=== PATIENT | male | born 1940 | race Caucasian/White ===

== ENCOUNTER 2016-09-05 21:37 | Inpatient (IN) | payer OTHER ==
[~2016-09-05] VITALS: Ht 167.6 cm; Wt 112.2 kg
[~2016-09-05 21:37] MED LIST: ASPEC325 PO; GLC500 PO; HYDC25 PO; INSDGI SC; LISI-725 PO; MULT-506 PO; OXYC-57 PO; PRLSR20 PO
[2016-09-05] MEDS ORDERED: SODIUM CHLORIDE 0.9% 500ML 500 ML IV STA (22:26)
[2016-09-05] MEDS ORDERED: LEVAQUIN 750MG / 150ML D5W IV STA (22:26)
[2016-09-05 22:27] LABS: HEMATOCRIT 44.2 % (42-52); MEAN CELL VOLUME 89.5 fL (80-100); MEAN CORPUSCULAR HEMOGLOBIN 29.8 pg (25-34); MEAN CORPUSCULAR HGB CONC 33.3 g/dl (32-36); MEAN PLATELET VOLUME 10.4 fL (7.4-10.4); PLATELET COUNT 128 K/uL (130-400); RED BLOOD COUNT 4.94 M/uL (4.7-6.1)
[2016-09-05 22:37] LABS: PROTHROMBIN TIME (PATIENT) 11.1 SECONDS (9.0-12.0)
--- NOTE | 2016-09-05 22:40 | DIAGNOSTIC IMAGING REPORT ---
CHEST ONE VIEW PORTABLE CLINICAL HISTORY: Respiratory distress COMPARISON STUDY: No previous studies for comparison. FINDINGS: The heart is at the upper limits of normal in size. There is no overt failure. There is no focal pulmonary consolidation. There are minor basilar atelectatic changes.[ IMPRESSION: No active disease in the chest. Electronically signed by: Kal Rm M.D. 09/05/2016 10:39 PM Dictated Date/Time: 09/05/2016 10:38 PM
[2016-09-05] MEDS ORDERED: NITROGLYCERIN OINT 2% 1GM PACKET EXT STA (22:50)
[2016-09-05 22:56] LABS: BASO % 0.1 %; BASO ABS # 0.01 K/uL (0-0.2); COMPLETE YES; EOS % 1.3 %; IG% 0.1 %; LYMPH % 14.9 %; LYMPH ABS # 1.36 K/uL (1.2-3.4); MONO % 5.6 %
[2016-09-05] MEDS ORDERED: LISI20TA3 PO (22:56)
[2016-09-05] MEDS ORDERED: CLOP1TAB15 PO (22:56)
[2016-09-05] MEDS ORDERED: COEN75CA PO (22:56)
[2016-09-05] MEDS ORDERED: MAGN500T4 PO (22:56)
[2016-09-05] MEDS ORDERED: ZINC1TAB PO (22:56)
[2016-09-05] MEDS ORDERED: CHOL1000 PO (22:56)
[2016-09-05] MEDS ORDERED: TURM500T PO (22:56)
[2016-09-05] MEDS ORDERED: MISCTAB26 PO (22:56)
[2016-09-05] MEDS ORDERED: LOVA20TA4 PO (22:56)
[2016-09-05] MEDS ORDERED: VITA400C3 PO (22:56)
[2016-09-05] MEDS ORDERED: CINN1CAP2 PO (22:56)
[2016-09-05] MEDS ORDERED: FURO-85 PO (22:56)
[2016-09-05] MEDS ORDERED: GLIM4TAB2 PO (22:56)
[2016-09-05] MEDS ORDERED: OMEGCAP2 PO (22:56)
[2016-09-05] MEDS ORDERED: METF-384 PO (22:56)
[2016-09-05] MEDS ORDERED: COCO1OIL2 PO (22:56)
[2016-09-05] MEDS ORDERED: SAW450CA5 PO (22:56)
[2016-09-05] MEDS ORDERED: CARV12.5 PO (22:56)
[2016-09-05] MEDS ORDERED: NITROGLYCERIN OINT 2% 1GM PACKET ONE ×2 (22:59→23:02)
[2016-09-05 23:09] LABS: ALB/GLOB RATIO 1.2 (0.9-2); ALKALINE PHOSPHATASE 82 U/L (45-117); ALT/SGPT 39 U/L (12-78); BLOOD UREA NITROGEN 21 mg/dl (7-18); BUN/CREATININE RATIO 17.6 (10-20); CALCIUM 8.5 mg/dl (8.5-10.1); CARBON DIOXIDE 31 mmol/L (21-32); CHLORIDE 102 mmol/L (98-107); GLUCOSE 247 mg/dl (70-99)
[2016-09-05 23:15] LABS: POTASSIUM 3.8 mmol/L (3.5-5.1); SODIUM 141 mmol/L (136-145)
[2016-09-05 23:20] LABS: AST/SGOT 31 U/L (15-37)
[2016-09-05 23:52] LABS: URINE APPEARANCE CLEAR (CLEAR); URINE BILIRUBIN NEG (NEG); URINE COLOR YELLOW; URINE NITRITE NEG (NEG); URINE SPECIFIC GRAVITY 1.019 (1.000-1.030); UROBILINOGEN NEG (NEG)
[2016-09-05 23:58] LABS: MANUAL MICROSCOPIC REQUIRED? NO; REVIEW REQ? NO
[2016-09-06] VITALS (12 sets, daily range): BP systolic 107–164; BP diastolic 54–91; PULSE 59–102; TEMP 36.4–37.2; O2SAT 90–97; Ht 167.6 cm; Wt 112.2 kg
[2016-09-06] MEDS ORDERED: SODIUM CHLORIDE 0.9% 1000ML 1,000 ML IV STA (00:21)
[2016-09-06] MEDS ORDERED: MAGNESIUM HYDROXIDE SUSP 30 ML UDC PO PRN (00:30)
[2016-09-06] MEDS ORDERED: POLYETHYLENE (MIRALAX) 17 GM PACK PO PRN (00:30)
[2016-09-06] MEDS ORDERED: ONDANSETRON INJ 2 MG/ML 2 ML VIAL IV PRN (00:30)
[2016-09-06] MEDS ORDERED: ALUMINUM/MAGNESIUM/SIMETH (MAALOX MAX) 30 ML UDC PO PRN (00:30)
[2016-09-06] MEDS ORDERED: NITROGLYCERIN 0.4 MG SL PER TAB CHARGE SL PRN (00:30)
[2016-09-06] MEDS ORDERED: ACETAMINOPHEN 325 MG TAB PO PRN (00:30)
[2016-09-06] MEDS ORDERED: ZOLPIDEM TARTRATE 5 MG TAB PO PRN (00:30)
[2016-09-06] MEDS ORDERED: OPTIRAY 320 IV PRN (00:30)
[2016-09-06] MEDS ORDERED: CEFTRIAXONE SOD INJ 1 GM in DEXTROSE 5% ADD-VANTAGE 50ML 50 ML IV STA (00:37)
[2016-09-06] MEDS ORDERED: AZITHROMYCIN IV 500 MG in DEXTROSE 5% 250ML 250 ML IV STA (00:37)
--- NOTE | 2016-09-06 01:32 | History and Physical ---
History & Physical Date & Time of Service: Sep 06, 2016 at 01:31 Chief Complaint: Congested Primary Care Physician: No Doctor, Assigned History of Present Illness Source: patient This is 76 yo Male visiting [facility] , presented with SOB , orthopnea , cough with productive sputum , chills for past 2 days Pt's past medical hx includes -hx of TIA ( multiple times ) , HTN , CHF ( dx approx 2 yrs back ) , DM type 2 pt mentions he came to [place] with his to visit family , has been staying in a Motel 2 nights before pt woke up with SOB , cough , unable to lay flat had ongoing cough through the day tool Zyrtec -for possible allergy symptom -developed chills and rigor no record of fever in the ED pt was found hypoxic spo2 in 80's in RA improved after 2 L 02 ( pt is not on home 02 ) Cxry shows no active pulmonary disease , no pulmonary congestion , Pro BNP wnl CTA of chest negative for PE bibasilar atelectasis pt given dose of IV Levaquin in ER will be admitted to telemetry for further care Social History Smoking Status: Never Smoker Multi-Drug Resistant Organisms History of MDRO: No Allergies Coded Allergies: CI Pigment Blue 63 (Unverified Allergy, Severe, HALLUCINATIONS, 09/05/16) Oseltamivir (Unverified Allergy, Severe, HALLUCINATIONS, 09/05/16) Home Medications Scheduled Carvedilol (Coreg), 12.5 MG PO BID Cholecalciferol (Vitamin D3), 1 TAB PO DAILY Cinnamon (Cinnamon), 2 CAP PO DAILY Clopidogrel (Plavix), 75 MG PO DAILY Coconut Oil (Bulk) (Coconut Oil), 1,000 MG PO DAILY Coenzyme Q10 (Ubidecarenone) (Co Q-10), 1 CAP PO DAILY Furosemide (Lasix), 20 MG PO DAILY Glimepiride (Glimepiride), 1 TAB PO DAILY Lisinopril (Prinivil), 20 MG PO DAILY Lovastatin (Mevacor), 20 MG PO DAILY Magnesium Oxide (Mg Supplement (Magnesium), 1 TAB PO DAILY Metformin Hcl (Glucophage), 1,000 MG PO DAILY Misc Natural Products (Ginkgo Biloba), 1 TAB PO DAILY [place]-3 Fatty Acids (Fish Oil), 2 CAP PO DAILY Saw [place] (Serenoa Repens) (Saw [place]), 1 CAP PO DAILY Turmeric (Curcuma Longa) (Turmeric), 1 TAB PO DAILY Vitamin E (Vitamin E 400 Iu), 400 INTER.UNIT PO DAILY Zinc Gluconate (Zinc), 1 TAB PO DAILY Review of Systems Constitutional: + chills, + sweats, + weight loss, + weakness, + fatigue Respiratory: + cough, + sputum, + shortness of breath, + dyspnea on exertion, + dyspnea at rest Abdomen: No pain, No nausea, No vomiting, No diarrhea, No constipation, No GI bleeding, No problem reported Musculoskeletal: No joint pain, No muscle pain, No swelling, No calf pain, No problem reported Genitourinary - Male: No hematuria, No dysuria, No urinary frequency, No urinary urgency, No urinary hesitancy, No urinary retention, No urinary incontinence, No penile discharge, No lesions, No impotence, No problem reported Neurologic: + weakness Physical Exam Vital Signs Date Time Temp Pulse Resp B/P (MAP) Pulse Ox O2 Delivery O2 Flow Rate FiO2 09/06/16 01:05 37.2 115 17 140/80 99 09/06/16 00:37 115 17 140/80 99 Nasal Cannula 2.0 09/05/16 23:43 110 09/05/16 23:02 100 24 174/102 97 Nasal Cannula 2.0 09/05/16 22:06 97 Nasal Cannula 2.0 09/05/16 21:53 97 Nasal Cannula 2.0 09/05/16 21:41 37.6 103 20 220/97 88 Room Air General Appearance: no apparent distress Head: normocephalic, atraumatic Eyes: sclerae normal Respiratory/Chest: chest non-tender, + decreased breath sounds, + pertinent finding (no wheeze or rales noted ) Cardiovascular: regular rate, rhythm, no edema, no JVD Abdomen/GI: non tender, soft Extremities/Musculoskelatal: normal inspection, no calf tenderness, normal capillary refill, no pedal edema Neurologic/Psych: alert, normal mood/affect, oriented x 3 Diagnostics Laboratory Results Results Past 24 Hours Test 09/05/16 22:10 09/05/16 23:40 Range/Units White Blood Count 9.10 4.8-10.8 K/uL Red Blood Count 4.94 4.7-6.1 M/uL Hemoglobin 14.7 14.0-18.0 g/dL Hematocrit 44.2 42-52 % Mean Corpuscular Volume 89.5 80-100 fL Mean Corpuscular Hemoglobin 29.8 25-34 pg Mean Corpuscular Hemoglobin Concent 33.3 32-36 g/dl Platelet Count 128 130-400 K/uL Mean Platelet Volume 10.4 7.4-10.4 fL Neutrophils (%) (Auto) 78.0 % Lymphocytes (%) (Auto) 14.9 % Monocytes (%) (Auto) 5.6 % Eosinophils (%) (Auto) 1.3 % Basophils (%) (Auto) 0.1 % Neutrophils # (Auto) 7.09 1.4-6.5 K/uL Lymphocytes # (Auto) 1.36 1.2-3.4 K/uL Monocytes # (Auto) 0.51 0.11-0.59 K/uL Eosinophils # (Auto) 0.12 0-0.5 K/uL Basophils # (Auto) 0.01 0-0.2 K/uL RDW Standard Deviation 41.8 36.4-46.3 fL RDW Coefficient of Variation 12.9 11.5-14.5 % Immature Granulocyte % (Auto) 0.1 % Immature Granulocyte # (Auto) 0.01 0.00-0.02 K/uL Prothrombin Time 11.1 9.0-12.0 SECONDS Prothromb Time International Ratio 1.0 0.9-1.1 Activated Partial Thromboplast Time 26.4 21.0-31.0 SECONDS Partial Thromboplastin Ratio 1.0 D-Dimer 520 0-500 ug/L FEU Sodium Level 141 136-145 mmol/L Potassium Level 3.8 3.5-5.1 mmol/L Chloride Level 102 98-107 mmol/L Carbon Dioxide Level 31 21-32 mmol/L Anion Gap 8.0 3-11 mmol/L Blood Urea Nitrogen 21 7-18 mg/dl Creatinine 1.20 0.60-1.40 mg/dl Est Creatinine Clear Calc Drug Dose 64.0 ml/min Estimated GFR () 67.7 Estimated GFR (Non- 58.4 BUN/Creatinine Ratio 17.6 10-20 Random Glucose 247 70-99 mg/dl Calcium Level 8.5 8.5-10.1 mg/dl Total Bilirubin 0.5 0.2-1 mg/dl Aspartate Amino Transf (AST/SGOT) 31 15-37 U/L Alanine Aminotransferase (ALT/SGPT) 39 12-78 U/L Alkaline Phosphatase 82 45-117 U/L Troponin I < 0.015 0-0.045 ng/ml Pro-B-Type Natriuretic Peptide 163 0-1800 pg/ml Total Protein 7.7 6.4-8.2 gm/dl Albumin 4.2 3.4-5.0 gm/dl Globulin 3.5 2.5-4.0 gm/dl Albumin/Globulin Ratio 1.2 0.9-2 Urine Color YELLOW Urine Appearance CLEAR CLEAR Urine pH 7.0 4.5-7.5 Urine Specific [place] 1.019 1.000-1.030 Urine Protein NEG NEG Urine Glucose (UA) 1+ NEG Urine Ketones NEG NEG Urine Occult Blood NEG NEG Urine Nitrite NEG NEG Urine Bilirubin NEG NEG Urine Urobilinogen NEG NEG Urine Leukocyte Esterase NEG NEG Microbiology Results 09/06/16 Blood Culture, Received Pending 09/06/16 Blood Culture, Received Pending Diagnostic Radiology CT CHEST WITH CONTRAST : mild ascending aortic aneurysm measuring 4 cm , no evidence of dissection . No evidence of acute pulmonary embolism , main pulmonary artery is normal in caliber . Thickening of left ventricular wall , Coronary atherosclerosis , No pericardial effusion , No adenopathy by size criteria , No consolidation ,effusion or pneumothorax CXR normal Impression Assessment and Plan SOB /HYPOXIA : possible due to acute bronchitis Cxray /CT chest does not show any infiltrate Lungs auscultation is benign cont Empiric ABx with Rocephin /Zithromax blood culture ordered HTN : stable cont out pt meds CHF : Dx of CHF 2 yrs back no report available as pt is visiting form out of State does not appear to have vol overloaded ECHO ordered cont Lasix , Lisinopril TYPE 2 DM : cont Lantus oral agents on hold while admitted insulin sliding scale PRIOR HX OF TIA : No neurological deficit noted on Aspirin , Plavix , statin FULL CODE DVT PROPHYLAXIS : sub heparin DISPOSITION : Discharge home when medically stable Level of Care Telemetry Resuscitation Status FULL RESUSCITATION VTE Prophylaxis VTE Risk Assessment Done? Y/N: Yes Risk Level: Moderate Given or contraindicated: Unfractionated heparin SQ
[2016-09-06] MEDS ORDERED: GLUCOSE 10 TABS/TUBE PO PRN (01:45)
[2016-09-06] MEDS ORDERED: GLUCAGON FOR INJ 1 MG VIAL SQ PRN (01:45)
[2016-09-06] MEDS ORDERED: SODIUM CHLORIDE 0.9% 1000ML 1,000 ML IV SCH (01:45)
[2016-09-06] MEDS ORDERED: GLUCOSE 40% GEL 15 GM TUBE PO PRN (01:45)
[2016-09-06] MEDS ORDERED: DEXTROSE 50% 50 ML SYR IV PRN (01:45)
--- NOTE | 2016-09-06 02:16 | EMERGENCY ROOM VISIT NOTE ---
History Report prepared by Sage: Pete Ugarte Under the Supervision of: Dr. Jose Angel Willson D.O. First contact with patient: 21:45 Chief Complaint: SHORTNESS OF BREATH Stated Complaint: CONGESTED Nursing Triage Summary: pt reports increased exertional sob , " I felt like I was coming down with a cold and congested" took a claritin 1 hr ago and then got fever and chills + mucus production yellow in color History of Present Illness The patient is a 76 year old male who presents to the Emergency Room with complaints of constant shortness of breath beginning last night. The patient states that last night he was at [employer] and ate dinner. He reports that when we went back to the [facility] room and could not breath. He states that he is not on oxygen at home. The patient notes that he used the C-Pack, that he uses every night, and it helped. He states that he also has a productive, light yellow cough, rhinorrhea, and fevers. The patient denies chest pain and abdominal pain. He notes that he took Claritin and then started shaking violently. The patient states that he has history of CHF, DM, and multiple TIAs. He reports that he takes Carvedilol daily. The patient states that he is here from [place] because his niece just graduated. Source of History: patient Onset: last night Position: other (global) Quality: other (shortness of breath) Timing: constant Modifying Factors (Relieving): other (c-pack) Associated Symptoms: + fevers, + cough (productive, yellow), No chest pain, No abdominal pain Note: Associated symptoms: rhinorrhea Review of Systems See HPI for pertinent positives & negatives. A total of 10 systems reviewed and were otherwise negative. Past Medical & Surgical Medical Problems: (1) CHF (congestive heart failure) (2) Diabetes mellitus (3) Hypoxia (4) TIA (transient ischemic attack) Social History Smoking Status: Never Smoker Marital Status: Occupation Status: retired Current/Historical Medications Scheduled Carvedilol (Coreg), 12.5 MG PO BID Cholecalciferol (Vitamin D3), 1 TAB PO DAILY Cinnamon (Cinnamon), 2 CAP PO DAILY Clopidogrel (Plavix), 75 MG PO DAILY Coconut Oil (Bulk) (Coconut Oil), 1,000 MG PO DAILY Coenzyme Q10 (Ubidecarenone) (Co Q-10), 1 CAP PO DAILY Furosemide (Lasix), 20 MG PO DAILY Glimepiride (Glimepiride), 1 TAB PO DAILY Lisinopril (Prinivil), 20 MG PO DAILY Lovastatin (Mevacor), 20 MG PO DAILY Magnesium Oxide (Mg Supplement (Magnesium), 1 TAB PO DAILY Metformin Hcl (Glucophage), 1,000 MG PO DAILY Misc Natural Products (Ginkgo Biloba), 1 TAB PO DAILY [place]-3 Fatty Acids (Fish Oil), 2 CAP PO DAILY [place] (Serenoa Repens) (S[place]), 1 CAP PO DAILY Turmeric (Curcuma Longa) (Turmeric), 1 TAB PO DAILY Vitamin E (Vitamin E 400 Iu), 400 INTER.UNIT PO DAILY Zinc Gluconate (Zinc), 1 TAB PO DAILY Allergies Coded Allergies: CI Pigment Blue 63 (Unverified Allergy, Severe, HALLUCINATIONS, 09/05/16) Oseltamivir (Unverified Allergy, Severe, HALLUCINATIONS, 09/05/16) Physical Exam Vital Signs Date Time Temp Pulse Resp B/P (MAP) Pulse Ox O2 Delivery O2 Flow Rate FiO2 09/05/16 23:43 110 09/05/16 23:02 100 24 174/102 97 Nasal Cannula 2.0 09/05/16 22:06 97 Nasal Cannula 2.0 09/05/16 21:53 97 Nasal Cannula 2.0 09/05/16 21:41 37.6 103 20 220/97 88 Room Air Physical Exam GENERAL: Obese, sitting up in bed, disheveled, dyspneic on conversation EYE EXAM: normal conjunctiva, PERRL and EOM's grossly intact OROPHARYNX: no exudate, no erythema, lips, buccal mucosa, and tongue normal and mucous membranes are moist NECK: supple, no nuchal rigidity, no adenopathy, non-tender LUNGS: Coarse bilateral bases. Normal chest wall mechanics HEART: Distant and tachycardic, S1 normal and S2 normal ABDOMEN: abdomen soft, non-tender, normo-active bowel sounds, no masses, no rebound or guarding. BACK: Back is symmetrical on inspection and there is no deformity, no midline tenderness, no CVA tenderness. SKIN: no rashes and no bruising UPPER EXTREMITIES: upper extremities are grossly normal. LOWER EXTREMITIES: Faint pitting edema. NEURO EXAM: Normal sensorium, cranial nerves II-XII intact, normal speech, no weakness of arms, no weakness of legs. Medical Decision & Procedures ER Provider Diagnostic Interpretation: Radiology results as stated below per my review and the radiologist's interpretation: CHEST ONE VIEW PORTABLE CLINICAL HISTORY: Respiratory distress COMPARISON STUDY: No previous studies for comparison. FINDINGS: The heart is at the upper limits of normal in size. There is no overt failure. There is no focal pulmonary consolidation. There are minor basilar atelectatic changes.[ IMPRESSION: No active disease in the chest. Electronically signed by: Kal Rm M.D. 09/05/2016 10:39 PM Dictated Date/Time: 09/05/2016 10:38 PM Laboratory Results 09/05/16 22:10 Red Blood Count 4.94, Mean Corpuscular Volume 89.5, Mean Corpuscular Hemoglobin 29.8, Mean Corpuscular Hemoglobin Concent 33.3, Mean Platelet Volume 10.4, Neutrophils (%) (Auto) 78.0, Lymphocytes (%) (Auto) 14.9, Monocytes (%) (Auto) 5.6, Eosinophils (%) (Auto) 1.3, Basophils (%) (Auto) 0.1, Neutrophils # (Auto) 7.09, Lymphocytes # (Auto) 1.36, Monocytes # (Auto) 0.51, Eosinophils # (Auto) 0.12, Basophils # (Auto) 0.01 09/05/16 22:10 Test 09/05/16 22:10 09/05/16 23:40 White Blood Count 9.10 K/uL (4.8-10.8) Red Blood Count 4.94 M/uL (4.7-6.1) Hemoglobin 14.7 g/dL (14.0-18.0) Hematocrit 44.2 % (42-52) Mean Corpuscular Volume 89.5 fL (80-100) Mean Corpuscular Hemoglobin 29.8 pg (25-34) Mean Corpuscular Hemoglobin Concent 33.3 g/dl (32-36) Platelet Count 128 K/uL (130-400) Mean Platelet Volume 10.4 fL (7.4-10.4) Neutrophils (%) (Auto) 78.0 % Lymphocytes (%) (Auto) 14.9 % Monocytes (%) (Auto) 5.6 % Eosinophils (%) (Auto) 1.3 % Basophils (%) (Auto) 0.1 % Neutrophils # (Auto) 7.09 K/uL (1.4-6.5) Lymphocytes # (Auto) 1.36 K/uL (1.2-3.4) Monocytes # (Auto) 0.51 K/uL (0.11-0.59) Eosinophils # (Auto) 0.12 K/uL (0-0.5) Basophils # (Auto) 0.01 K/uL (0-0.2) RDW Standard Deviation 41.8 fL (36.4-46.3) RDW Coefficient of Variation 12.9 % (11.5-14.5) Immature Granulocyte % (Auto) 0.1 % Immature Granulocyte # (Auto) 0.01 K/uL (0.00-0.02) Prothrombin Time 11.1 SECONDS (9.0-12.0) Prothromb Time International Ratio 1.0 (0.9-1.1) Activated Partial Thromboplast Time 26.4 SECONDS (21.0-31.0) Partial Thromboplastin Ratio 1.0 D-Dimer 520 ug/L FEU (0-500) Anion Gap 8.0 mmol/L (3-11) Est Creatinine Clear Calc Drug Dose 64.0 ml/min Estimated GFR () 67.7 Estimated GFR (Non- 58.4 BUN/Creatinine Ratio 17.6 (10-20) Calcium Level 8.5 mg/dl (8.5-10.1) Total Bilirubin 0.5 mg/dl (0.2-1) Aspartate Amino Transf (AST/SGOT) 31 U/L (15-37) Alanine Aminotransferase (ALT/SGPT) 39 U/L (12-78) Alkaline Phosphatase 82 U/L (45-117) Troponin I < 0.015 ng/ml (0-0.045) Pro-B-Type Natriuretic Peptide 163 pg/ml (0-1800) Total Protein 7.7 gm/dl (6.4-8.2) Albumin 4.2 gm/dl (3.4-5.0) Globulin 3.5 gm/dl (2.5-4.0) Albumin/Globulin Ratio 1.2 (0.9-2) Urine Color YELLOW Urine Appearance CLEAR (CLEAR) Urine pH 7.0 (4.5-7.5) Urine Specific [place] 1.019 (1.000-1.030) Urine Protein NEG (NEG) Urine Glucose (UA) 1+ (NEG) Urine Ketones NEG (NEG) Urine Occult Blood NEG (NEG) Urine Nitrite NEG (NEG) Urine Bilirubin NEG (NEG) Urine Urobilinogen NEG (NEG) Urine Leukocyte Esterase NEG (NEG) Laboratory results per my review. Medications Administered Medications (Trade) Dose Ordered Sig/Vee Route Start Time Stop Time Status Last Admin Dose Admin Sodium Chloride 500 ml @ 999 mls/hr Q31M STAT IV 09/05/16 22:26 09/05/16 22:57 DC 09/05/16 22:35 999 MLS/HR Levofloxacin (Levaquin / D5W) 750 mg NOW STAT IV 09/05/16 22:26 09/05/16 22:27 DC 09/05/16 22:34 750 MG Nitroglycerin (Nitroglycerin 2% Oint) 2 inch ONE STAT EXT 09/05/16 22:50 09/05/16 22:52 DC 09/05/16 23:03 2 INCH Sodium Chloride 1,000 ml @ 999 mls/hr Q1H1M STAT IV 09/06/16 00:21 09/06/16 01:21 DC 09/06/16 00:42 999 MLS/HR ECG Indication: SOB/dyspnea Rate (beats per minute): 105 Rhythm: sinus tachycardia Findings: Q waves (Septal and inferior), left axis deviation ED Course ED COURSE: Vital signs were reviewed and showed tachycardia, hypertension, hypoxia The patients medical record was reviewed The above diagnostic studies were performed and reviewed. ED treatments and interventions as stated above. 5: The patient was evaluated in room A11B. A complete history and physical examination was performed. 6: Ordered Levofloxacin 750mg IV, Sodium Chloride 500 ml @ 999 mls/hr IV 2250: Upon reevaluation, the patient is resting. I discussed my findings with the patient and he understands and agrees with the treatment plan. Ordered Nitroglycerin 2in EXT. 2256: I discussed the patient's case with Sean Corona. The patient will be evaluated for further treatment. 0021: Ordered Sodium Chloride 1000 ml @ 999 mls/hr IV Based on the patients age, coexisting illnesses, exam and lab findings the decision to treat as an inpatient was made. The patient remained stable while under my care. The patient will be evaluated for further management. Medical Decision Differential diagnoses includes but is not limited to pneumonia, bronchitis, COPD/Asthma exacerbation, pneumothorax, pulmonary embolism, congestive heart failure, acute coronary syndrome Medication Reconciliation: I attest that I have personally reviewed the patient' s current medication list. Blood pressure screening: Patient was found to have an elevated blood pressure and was referred to their primary doctor for recheck and further treatment. Patient is a 76-year-old male who presents the ER for shortness of breath. Upon presentation he is hypoxic, hypertensive and has a low-grade temperature. Chest x-ray shows no focal consolidation. CBC along with BMP, LFTs and troponin was negative. UA was negative. EKG does showed Q waves but no obvious ischemia. Patient was placed on Nitropaste and his systolic pressures improved significant. He remained on 2 L nasal cannula along the ER. Patient was given a dose of Levaquin with his productive cough and shortness of breath. He is admitted to internal medicine for a further workup. Prior to admission a CT PE was performed but was not completed until after admission. Consults Time Called: 2250 Consulting Physician: Sean Corona Returned Call: [phone] I discussed the patient's case with Sean Corona. The patient will be evaluated for further treatment. Impression Primary Impression: SOB (shortness of breath) Additional Impression: Hypoxia Scribe Attestation The scribe's documentation has been prepared under my direction and personally reviewed by me in its entirety. I confirm that the note above accurately reflects all work, treatment, procedures, and medical decision making performed by me. Departure Information Dispostion Being Evaluated By Hospitalist Referrals No Doctor, Assigned (PCP) Patient Instructions My [facility] Problem Qualifiers
[2016-09-06] MEDS ORDERED: ALBUT/IPRATROP 3MG/0.5MG NEB 3 ML VIAL INH PRN (03:45)
[2016-09-06] MEDS: HEPARIN SOD 5000 UNIT/0.5 ML CARP SQ SCH ×3 (05:59→20:53)
[2016-09-06 07:18] LABS: CHOLESTEROL/HDL RATIO 3.8; CKMB/CK RATIO 1.8 (0-3.0)
--- NOTE | 2016-09-06 07:31 | DIAGNOSTIC IMAGING REPORT ---
CHEST ONE VIEW PORTABLE CLINICAL HISTORY: Shortness of breath. COMPARISON STUDY: Chest radiograph September 05, [address] September 06, 2016. FINDINGS: No pneumothorax or pleural effusion is present. There is no evidence of pulmonary edema. Mild cardiomegaly is noted. There is no consolidation. IMPRESSION: No acute cardiopulmonary findings. Electronically signed by: Justin Stacy M.D. 09/06/2016 7:29 AM Dictated Date/Time: 09/06/2016 7:27 AM
--- NOTE | 2016-09-06 08:13 | DIAGNOSTIC IMAGING REPORT ---
CT ANGIOGRAPHY OF THE CHEST, PULMONARY EMBOLUS PROTOCOL CLINICAL HISTORY: Shortness of breath and elevated d-dimer. COMPARISON STUDY: Chest radiograph September 05, 2016. TECHNIQUE: Following IV administration of 108 mL of [id number]-320, helical axial images of the chest were obtained utilizing the pulmonary embolus protocol. Maximal intensity projections and sagittal and coronal reformats were viewed on an independent 3D workstation. IV contrast was administered without complication. CT DOSE: 632.52 mGy.cm FINDINGS: No pulmonary emboli are identified although this exam is compromised by respiratory motion which compromises evaluation of the segmental and subsegmental pulmonary arteries. The heart is mildly enlarged. There is no pericardial effusion. Mild dilatation of the ascending aorta is noted, measuring 4 cm at the level the main pulmonary artery. There is no thoracic aortic dissection. Lungs are suboptimally assessed due to respiratory motion. Subpleural opacities favor atelectasis. A mild infectious process would be difficult to exclude within the medial basilar segment of the right lower lobe. Central airways are patent. There is no pneumothorax or pleural effusion. Bony thorax is unremarkable. There is suspected fatty infiltration of the liver. IMPRESSION: 1. No pulmonary emboli identified although the segmental and subsegmental pulmonary arteries are suboptimally assessed due to respiratory motion. 2. Moderate cardiomegaly and mild dilatation of the ascending aorta. No thoracic aortic dissection. 3. A few scattered airspace opacities. Atelectasis is favored although a mild infectious process could appear similar. Electronically signed by: Justin Stacy M.D. 09/06/2016 8:11 AM Dictated Date/Time: 09/06/2016 8:00 AM
[2016-09-06] MEDS: CARVEDILOL 12.5 MG TAB PO SCH ×2 (08:18→20:13)
[2016-09-06] MEDS: ASPIRIN 81 MG ECTAB PO SCH (08:18)
[2016-09-06] MEDS: FUROSEMIDE 20 MG TAB PO SCH (08:19)
[2016-09-06] MEDS: MAGNESIUM OXIDE 400 MG TAB PO SCH (08:19)
[2016-09-06] MEDS: LISINOPRIL 20 MG TAB PO SCH (08:19)
[2016-09-06] MEDS: CLOPIDOGREL BISULFATE 75 MG TAB PO SCH (08:19)
[2016-09-06] MEDS: CHOLECALCIFEROL 1000 INTER.UNIT TAB PO SCH (08:20)
[2016-09-06] MEDS: OMEGA-3 (PURIFIED FISH OIL) 1 GM CAP PO SCH (08:20)
[2016-09-06] MEDS: LOVASTATIN 20 MG TAB PO SCH (08:20)
[2016-09-06] MEDS: TOCOPHERYL, DL-ALPHA 400 INTER.UNIT CAP PO SCH (08:20)
[2016-09-06] MEDS: INSULIN ASPART 100 UNITS/ML 3 ML PEN SC SCH ×4 (08:29→20:52)
[2016-09-06 08:30] LABS: ESTIMATED AVERAGE GLUCOSE 154 mg/dl; HA1C FLAG Normal (Normal)
[2016-09-06] MEDS ORDERED: CINNAMON PO SCH (09:00)
[2016-09-06] MEDS ORDERED: ZINC GLUCONATE PO SCH (09:00)
[2016-09-06] MEDS ORDERED: NON-FORMULARY MEDICATION (Turmeric (Curcuma Longa) (Turmeric) 1 TAB) PO SCH (09:00)
[2016-09-06] MEDS ORDERED: NON-FORMULARY MEDICATION (Saw Palmetto (Serenoa Repens) (Saw Palmetto) 1 CAP) PO SCH (09:00)
[2016-09-06] MEDS ORDERED: COCONUT OIL 1000 MG PO SCH (09:00)
[2016-09-06] MEDS ORDERED: NON-FORMULARY MEDICATION (Coenzyme Q10 (Ubidecarenone) (Co Q-10) 1 CAP) PO SCH (09:00)
[2016-09-06] MEDS ORDERED: NATURAL PRODUCTS PO SCH (09:00)
[2016-09-06] MEDS ORDERED: LEVALBUTEROL/IPRATROPIUM NEB INH ONE ×2 (12:21→12:45)
--- NOTE | 2016-09-06 12:30 | Progress Note ---
Medicine Progress Note Date & Time of Visit: Sep 06, 2016 at 12:24. Subjective patient seen resting in bed states he was feeling improved this morning but after he ate, his breathing seemed to "tighten" again has productive cough no other symptoms Objective Last 8 Hrs Date Time Temp Pulse Resp B/P (MAP) Pulse Ox O2 Delivery O2 Flow Rate FiO2 09/06/16 11:29 Nasal Cannula 2.0 09/06/16 08:10 Nasal Cannula 2.0 09/06/16 08:00 37.1 84 18 107/54 (71) 95 Nasal Cannula 3.0 09/06/16 05:29 90 Nasal Cannula 2.0 Physical Exam: General- oriented x 3, not in distress, speaks in sentences with some effort, no acc muscle use Head- atraumatic Eyes- EOMI, anicteric ENT- oropharynx clear Neck- supple, no JVD, no adenopathy, no thyromegaly Lungs-(+) wheezing mild expiratory diffuse on left> right distant breath sounds Heart- regular rhythm; no murmur, normal rate Abdomen- normal bowel sounds, soft, nontender Extremities- no pretibial edema, no calf tenderness; peripheral pulses intact Neuro- alert, oriented x 3; no gross focal deficits Skin- warm & dry Laboratory Results: Last 24 Hours Test 09/05/16 22:10 09/05/16 23:40 09/06/16 06:22 09/06/16 06:47 White Blood Count 9.10 K/uL Red Blood Count 4.94 M/uL Hemoglobin 14.7 g/dL Hematocrit 44.2 % Mean Corpuscular Volume 89.5 fL Mean Corpuscular Hemoglobin 29.8 pg Mean Corpuscular Hemoglobin Concent 33.3 g/dl Platelet Count 128 K/uL Mean Platelet Volume 10.4 fL Neutrophils (%) (Auto) 78.0 % Lymphocytes (%) (Auto) 14.9 % Monocytes (%) (Auto) 5.6 % Eosinophils (%) (Auto) 1.3 % Basophils (%) (Auto) 0.1 % Neutrophils # (Auto) 7.09 K/uL Lymphocytes # (Auto) 1.36 K/uL Monocytes # (Auto) 0.51 K/uL Eosinophils # (Auto) 0.12 K/uL Basophils # (Auto) 0.01 K/uL RDW Standard Deviation 41.8 fL RDW Coefficient of Variation 12.9 % Immature Granulocyte % (Auto) 0.1 % Immature Granulocyte # (Auto) 0.01 K/uL Prothrombin Time 11.1 SECONDS Prothromb Time International Ratio 1.0 Activated Partial Thromboplast Time 26.4 SECONDS Partial Thromboplastin Ratio 1.0 D-Dimer 520 ug/L FEU Sodium Level 141 mmol/L Potassium Level 3.8 mmol/L Chloride Level 102 mmol/L Carbon Dioxide Level 31 mmol/L Anion Gap 8.0 mmol/L Blood Urea Nitrogen 21 mg/dl Creatinine 1.20 mg/dl Est Creatinine Clear Calc Drug Dose 64.0 ml/min Estimated GFR () 67.7 Estimated GFR (Non- 58.4 BUN/Creatinine Ratio 17.6 Random Glucose 247 mg/dl Calcium Level 8.5 mg/dl Total Bilirubin 0.5 mg/dl Aspartate Amino Transf (AST/SGOT) 31 U/L Alanine Aminotransferase (ALT/SGPT) 39 U/L Alkaline Phosphatase 82 U/L Troponin I < 0.015 ng/ml 0.022 ng/ml Pro-B-Type Natriuretic Peptide 163 pg/ml Total Protein 7.7 gm/dl Albumin 4.2 gm/dl Globulin 3.5 gm/dl Albumin/Globulin Ratio 1.2 Urine Color YELLOW Urine Appearance CLEAR Urine pH 7.0 Urine Specific [place] 1.019 Urine Protein NEG Urine Glucose (UA) 1+ Urine Ketones NEG Urine Occult Blood NEG Urine Nitrite NEG Urine Bilirubin NEG Urine Urobilinogen NEG Urine Leukocyte Esterase NEG Estimated Average Glucose 154 mg/dl Hemoglobin A1c 7.0 % Total Creatine Kinase 368 U/L Creatine Kinase MB 6.7 ng/ml Creatine Kinase MB Ratio 1.8 Triglycerides Level 142 mg/dl Cholesterol Level 121 mg/dl HDL Cholesterol 32 mg/dl LDL Cholesterol, Calculated 61 mg/dl VLDL Cholesterol, Calculated 28 mg/dl Cholesterol/HDL Ratio 3.8 Bedside Glucose 193 mg/dl Test 09/06/16 11:30 Bedside Glucose 192 mg/dl Date/Time Source Procedure Growth Status 09/06/16 01:00 Blood Blood Culture Pending Received 09/06/16 00:57 Blood Blood Culture Pending Received 09/06/16 02:38 Sputum Expectorated Sputum Gram Stain - Final Resulted 09/06/16 02:38 Sputum Expectorated Sputum Sputum Culture Pending Resulted Assessment & Plan SOB /HYPOXIA LIKELY FROM RIGHT LOWER LOBE PNEUMONIA POSSIBLE UNDERLYING COPD, HISTORY OF SMOKING - CT chest: noted ff up sputum cultures blood cultures - start Solumedrol q8h Nebs q6h Ceftri + Azithro - Speech Tx eval to r/o component of aspiration PNA CHF : Dx of CHF 2 yrs back - euvolemic ECHO ordered cont Lasix , Lisinopril TYPE 2 DM : - ISS consult Pharmacy HTN - cotninue Lisinopril and Carvedilol PRIOR HX OF TIA : - No neurological deficit noted on Aspirin , Plavix , statin ASCENDING AORTIC ANEURSYM seen on CT chest . Mild dilatation of the ascending aorta is noted, measuring 4 cm at the level the main pulmonary artery. There is no thoracic aortic dissection. monitor FULL CODE DVT PROPHYLAXIS : sub heparin DISPOSITION : Discharge home when medically stable Current Inpatient Medications: Current Inpatient Medications Medications (Trade) Dose Ordered Sig/Vee Route Start Time Stop Time Status Last Admin Dose Admin Ceftriaxone Sodium 1 gm/ Dextrose 50 ml @ 100 mls/hr Q24H IV 09/06/16 21:00 09/13/16 20:59 Azithromycin 500 mg/Dextrose 255 ml @ 170 mls/hr Q24H IV 09/06/16 22:00 09/13/16 21:59 Heparin Sodium (Porcine) (Heparin Sq 5000 Unit/0.5ml) 5,000 unit Q8 SQ 09/06/16 06:00 10/06/16 05:59 09/06/16 05:59 5,000 UNIT Acetaminophen (Tylenol Tab) 650 mg Q4H PRN PO 09/06/16 00:30 10/06/16 00:29 Al Hydrox/Mg Hydrox/Simethicone (Maalox Max Susp) 15 ml Q4H PRN PO 09/06/16 00:30 10/06/16 00:29 Magnesium Hydroxide (Milk Of Magnesia Susp) 30 ml Q12H PRN PO 09/06/16 00:30 10/06/16 00:29 Zolpidem Tartrate (Ambien Tab) 5 mg HSZ PRN PO 09/06/16 00:30 10/06/16 00:29 Ondansetron HCl (Zofran Inj) 4 mg Q6H PRN IV 09/06/16 00:30 10/06/16 00:29 Nitroglycerin (Nitrostat Tab) 0.4 mg UD PRN SL 09/06/16 00:30 10/06/16 00:29 Aspirin (Ecotrin Tab) 81 mg QAM PO 09/06/16 09:00 10/06/16 08:59 09/06/16 08:18 81 MG Polyethylene (Miralax Powder Packet) 17 gm DAILY PRN PO 09/06/16 00:30 10/06/16 00:29 Ioversol (Optiray 320) 125 ml UD PRN IV 09/06/16 00:30 09/10/16 00:29 Carvedilol (Coreg Tab) 12.5 mg BID PO 09/06/16 09:00 10/06/16 08:59 09/06/16 08:18 12.5 MG Cholecalciferol (Vitamin D Tab) 1,000 inter.unit DAILY PO 09/06/16 09:00 10/06/16 08:59 09/06/16 08:20 1,000 INTER.UNIT Clopidogrel Bisulfate (plAVix TAB) 75 mg DAILY PO 09/06/16 09:00 10/06/16 08:59 09/06/16 08:19 75 MG Furosemide (Lasix Tab) 20 mg DAILY PO 09/06/16 09:00 10/06/16 08:59 09/06/16 08:19 20 MG Lisinopril (Zestril Tab) 20 mg DAILY PO 09/06/16 09:00 10/06/16 08:59 09/06/16 08:19 20 MG Lovastatin (Mevacor Tab) 20 mg DAILY PO 09/06/16 09:00 10/06/16 08:59 09/06/16 08:20 20 MG di-Jmssw-Abqtwjlmcw Acetate (Vitamin E Cap) 400 interunit DAILY PO 09/06/16 09:00 10/06/16 08:59 09/06/16 08:20 400 INTERUNIT Magnesium Oxide (Mag-Ox Tab) 400 mg DAILY PO 09/06/16 09:00 10/06/16 08:59 09/06/16 08:19 400 MG Fish Oil ([place]-3 (Purified Fish Oil) Cap) 2 gm DAILY PO 09/06/16 09:00 10/06/16 08:59 09/06/16 08:20 2 GM Insulin Aspart (novoLOG ASPART) SLIDING SCALE If C... ACHS SC 09/06/16 07:00 10/06/16 06:59 09/06/16 08:29 3 UNITS Glucose (Glucose 40% Gel) 15-30 GRAMS 15 GRAMS... UD PRN PO 09/06/16 01:45 10/06/16 01:44 Glucose (Glucose Chew Tab) 4-8 Tablets 4 Tabl... UD PRN PO 09/06/16 01:45 10/06/16 01:44 Dextrose (Dextrose 50% 50ML Syringe) 25-50ML OF 50% DW IV FOR... UD PRN IV 09/06/16 01:45 10/06/16 01:44 Glucagon (Glucagon Inj) 1 mg UD PRN SQ 09/06/16 01:45 10/06/16 01:44 Albuterol/ Ipratropium (Duoneb) 3 ml Q4R PRN INH 09/06/16 03:45 10/06/16 03:44
[2016-09-06] MEDS ORDERED: PHARMACY GLYCEMIC MGMT CONSULT PRN (12:34)
[2016-09-06] MEDS ORDERED: METHYLPREDNISOLONE IV 60 MG in SYRINGE 0 ML IV ONE (13:00)
[2016-09-06] MEDS ORDERED: INSULIN GLARGINE SOLOSTAR 100 UNITS/ML 3 ML PEN SC ONE (13:30)
--- NOTE | 2016-09-06 13:33 | Pharmacy Progress Note ---
Glycemic Control Intl Consult Date of Service Sep 06, 2016. Scope Glycemic Pharmacist consulted by Dr Okeefe on 09/06/16 for glycemic control and to write orders per [facility] inpatient glycemic control protocol Objective Weight (Kilograms): 112.800 Accuchecks BSG (last 24hrs): Test 09/05/16 22:10 09/06/16 06:47 09/06/16 11:30 Random Glucose 247 mg/dl (70-99) Bedside Glucose 193 mg/dl (70-99) 192 mg/dl (70-99) Laboratory Data (last 24hrs) Test 09/05/16 22:10 09/06/16 06:22 Anion Gap 8.0 mmol/L BUN/Creatinine Ratio 17.6 Blood Urea Nitrogen 21 mg/dl Creatinine 1.20 mg/dl Potassium Level 3.8 mmol/L Sodium Level 141 mmol/L White Blood Count 9.10 K/uL Red Blood Count 4.94 M/uL Hemoglobin 14.7 g/dL Hematocrit 44.2 % Mean Corpuscular Volume 89.5 fL Mean Corpuscular Hemoglobin 29.8 pg Mean Corpuscular Hemoglobin Concent 33.3 g/dl Platelet Count 128 K/uL Mean Platelet Volume 10.4 fL Neutrophils (%) (Auto) 78.0 % Lymphocytes (%) (Auto) 14.9 % Monocytes (%) (Auto) 5.6 % Eosinophils (%) (Auto) 1.3 % Basophils (%) (Auto) 0.1 % Neutrophils # (Auto) 7.09 K/uL Lymphocytes # (Auto) 1.36 K/uL Monocytes # (Auto) 0.51 K/uL Eosinophils # (Auto) 0.12 K/uL Basophils # (Auto) 0.01 K/uL Hemoglobin A1c 7.0 % HbA1c Test 09/06/16 06:22 Hemoglobin A1c 7.0 % (4.5-5.6) H Recent Pertinent Medications Outpatient Anti-diabetic Regimen: * Amaryl 4mg daily * Metformin 1gm PO daily * A1c = 7 % 09/06/16 The patient is currently receiving: * Basal insulin: Lantus -- units every -- hours * Correctional Insulin: None currently * Prandial insulin: Per carb ratio of 1 unit per 7 grams CHO consumed * Oral Agents: None currently Risk Factors for Insulin Resistance: * Steroids: Solu-medrol 60mg IV x 1 STAT, then 40mg IV Q 8 hours * Infection: PNX vs COPD exac; receiving Rocephin + Zithromax IV * Diet: ordered Clear Liq diet Assessment & Plan ASSESSMENT: 09/06/16 * Type 2 diabetic, managed w/ Amaryl + Metformin prior to admission with what appears to be good results based upon recent A1c 7% * Fasting BSG elevated this AM, FBS 193 - he will likely require basal insulin in order to achieve glycemic targets, more so now that the patient is starting high dose IV steroids * Will begin Novolog correctional insulin and also adjust the carb ratio dose to provide more insulin w/ each meal as steroids often lead to exaggerated post- prandial hyperglycemic response. * Initial insulin doses will be based upon weight and anticipated moderate stress. There will be room to go up on the dose if we see hyperglycemia worsen over the course of the day. Will add a 0200 BSG check as a precaution as some patients are difficult to control w/ SQ regimens. PLAN FOR INPATIENT GLYCEMIC CONTROL: * Starting Lantus 12 units SQ BID * Correction factor 25 mg/dl/unit * Carb ratio 1 unit per 7 grams CHO consumed * Goal range Low 110 mg/dL - High 140 mg/dL * BSG check at 0200 and cover w/ Novolog parameters * Please note that the plan above was derived based on current level of insulin resistance and hospital stress. These recommendations are appropriate for inpatient admission only. Plan of care upon discharge will need to be reassessed to avoid potential outpatient hypo/hyperglycemia. Thank you.
[2016-09-06] MEDS: IPRATROPIUM BROMIDE NEB SOLN 0.02% 2.5 ML VIAL INH SCH ×3 (13:44→19:06)
[2016-09-06] MEDS: LEVALBUTEROL 1.25MG/0.5ML NEB INH SCH ×3 (13:44→19:06)
--- NOTE | 2016-09-06 13:51 | ECHOCARDIOGRAM REPORT ---
*NOTICE TO RECEIVING LIBERTARIAN AGENCY This information is strictly Confidential and protected under [place] law. [place] law prohibits you from making any further disclosure of this information unless further disclosure is expressly permitted by the written consent of the person to whom it pertains or is authorized by law. A general authorization for the release of medical or other information is not sufficient for this purpose. Hospital accepts no responsibility if the information is made available to any other person, INCLUDING THE PATIENT. Interpretation Summary * Name: LUIS MAYA Study Date: 09/06/2016 09:56 AM BP: 144/65 mmHg * Patient Location: [facility] HR: 100 * : 1940 (M/d/yyyy) Gender: Male Height: 68 in * Age: 76 yrs Ethnicity: CA Weight: 250 lb * Ordering Physician: Maria E Black * Performed By: Latricia Roberts * * Reason For Study: CHEST PAIN * BSA: 2.2 m2 * The study was technically adequate. * There is no comparison study available. * -- Conclusions -- * Ejection Fraction = 55-60%. * There is mild concentric left ventricular hypertrophy. * The left ventricular wall motion is normal. * Grade I diastolic dysfunction, (abnormal relaxation pattern). * Mild aortic regurgitation. * Mildly dilated ascending aorta. Procedure Details * A complete two-dimensional transthoracic echocardiogram was performed (2D, M-mode, Doppler and color flow Doppler). * The study was technically difficult. * There were technical limitations due to patient'sbody habitus * A contrast injection of Definity was performed to improve assessment of LV function. * Contrast was injected into an intravenous site in the left arm. * One vial of Definity ultrasound contrast was diluted in normal saline to a total volume of 10 ml. A total of '2' ml of solution was administered during imaging. * Lot # [id number] of Definity utilized for procedure. * Expiration date 09/14. * The attending nurse who injected the contrast agent was MALCOLM DODSON RN. Left Ventricle * The left ventricle is normal in size. * There is no thrombus. * There is mild concentric left ventricular hypertrophy. * Ejection Fraction = 55-60%. * Left ventricular systolic function is normal. * The left ventricular wall motion is normal. Right Ventricle * The right ventricle is normal size. * The right ventricular systolic function is normal as assessed by tricuspid annular plane systolic excursion (TAPSE) (normal >1.5 cm). Atria * The left atrial size is normal. * Right atrial size is normal. * There is no evidence of atrial septal defect, but resolution does not allow assessment for a patent foramen ovale. Mitral Valve * The mitral valve is normal. * There is no mitral valve stenosis. * Significant mitral regurgitation is absent. Tricuspid Valve * The tricuspid valve is not well visualized. * There is no tricuspid stenosis. * Significant tricuspid regurgitation is absent. Aortic Valve * The aortic valve is not well visualized. * Aortic stenosis is absent. * Mild aortic regurgitation. Pulmonic Valve * The pulmonary valve is not well seen, but the Doppler examination is normal without significant regurgitation or stenosis. Great Vessels * The aortic root is normal size. * Mildly dilated ascending aorta. Pericardium/Pleural * There is no pericardial effusion. Great Vessels * Normal inferior vena cava diameter and respiratory variation suggests normal central venous pressure. Left Ventricular Diastolic Function * Grade I diastolic dysfunction, (abnormal relaxation pattern). MMode 2D Measurements and Calculations IVSd 1.1 cm IVSs 2.0 cm LVIDd 3.2 cm LVIDs 2.9 cm LVPWd 1.2 cm LVPWs 3.0 cm IVS/LVPW 0.94 FS 6.9 % EDV(Teich) 39.5 ml ESV(Teich) 33.2 ml EF(Teich) 15.9 % EDV(cubed) 31.3 ml ESV(cubed) 25.3 ml EF(cubed) 19.2 % % IVS thick 78.3 % % LVPW thick 155.8 % LV mass(C)d 106.5 grams LV mass(C)dI 47.4 grams/m\S\2 LV mass(C)s 384.8 grams LV mass(C)sI 171.2 grams/m\S\2 SV(Teich) 6.3 ml SI(Teich) 2.8 ml/m\S\2 SV(cubed) 6.0 ml SI(cubed) 2.7 ml/m\S\2 asc Aorta Diam 4.1 cm LVOT diam 2.4 cm LVOT area 4.4 cm\S\2 LVAd ap4 40.6 cm\S\2 LVLd ap4 9.2 cm EDV(MOD-sp4) 147.0 ml EDV(sp4-el) 152.2 ml LVAs ap4 21.9 cm\S\2 LVLs ap4 7.2 cm ESV(MOD-sp4) 54.0 ml ESV(sp4-el) 56.6 ml EF(MOD-sp4) 63.3 % EF(sp4-el) 62.8 % LVAd ap2 43.1 cm\S\2 LVLd ap2 9.4 cm EDV(MOD-sp2) 161.5 ml EDV(sp2-el) 167.1 ml LVAs ap2 22.0 cm\S\2 LVLs ap2 6.7 cm ESV(MOD-sp2) 60.3 ml ESV(sp2-el) 60.8 ml EF(MOD-sp2) 62.6 % EF(sp2-el) 63.6 % LVLd %diff 2.7 % EDV(MOD-bp) 157.8 ml LVLs %diff -7.17 % ESV(MOD-bp) 59.6 ml EF(MOD-bp) 62.2 % SV(MOD-sp4) 93.0 ml SI(MOD-sp4) 41.4 ml/m\S\2 SV(MOD-sp2) 101.2 ml SI(MOD-sp2) 45.0 ml/m\S\2 SV(MOD-bp) 98.2 ml SI(MOD-bp) 43.7 ml/m\S\2 SV(sp4-el) 95.6 ml SI(sp4-el) 42.6 ml/m\S\2 SV(sp2-el) 106.3 ml SI(sp2-el) 47.3 ml/m\S\2 Doppler Measurements and Calculations MV E max michael 95.8 cm/sec MV A max michael 135.4 cm/sec MV E/A 0.71 MV dec time 0.29 sec Ao V2 max 183.6 cm/sec Ao max PG 13.5 mmHg Ao max PG (full) 10.2 mmHg STEVEN(V,A) 2.2 cm\S\2 STEVEN(V,D) 2.2 cm\S\2 AI max michael 405.4 cm/sec AI max PG 65.7 mmHg AI dec slope 273.0 cm/sec\S\2 AI P1/2t 435.0 msec LV V1 max PG 3.3 mmHg LV V1 max 91.2 cm/sec PA V2 max 103.5 cm/sec PA max PG 4.3 mmHg
[2016-09-06] MEDS ORDERED: LEVALBUTEROL/IPRATROPIUM NEB INH SCH (15:00)
[2016-09-06 15:08] LABS: CKMB/CK RATIO 1.8 (0-3.0)
[2016-09-06] MEDS: CEFTRIAXONE SOD INJ 1 GM in DEXTROSE 5% ADD-VANTAGE 50ML 50 ML IV SCH (20:12)
[2016-09-06] MEDS: METHYLPREDNISOLONE IV 40 MG in SYRINGE 0 ML IV SCH (20:12)
[2016-09-06] MEDS ORDERED: CEFTRIAXONE SOD INJ 1 GM in DEXTROSE 5% ADD-VANTAGE 50ML 50 ML IV SCH (21:00)
[2016-09-06] MEDS ORDERED: INSULIN GLARGINE SOLOSTAR 100 UNITS/ML 3 ML PEN SC SCH (21:00)
[2016-09-06] MEDS ORDERED: AZITHROMYCIN IV 500 MG in DEXTROSE 5% 250ML 250 ML IV SCH (22:00)
[2016-09-07] VITALS (11 sets, daily range): BP systolic 147–165; BP diastolic 68–84; PULSE 64–82; TEMP 36.5–36.9; O2SAT 90–96
[2016-09-07] MEDS ORDERED: INSULIN ASPART 100 UNITS/ML 3 ML PEN SC ONE (02:00)
[2016-09-07] MEDS: LEVALBUTEROL 1.25MG/0.5ML NEB INH SCH ×4 (02:16→19:05)
[2016-09-07] MEDS: IPRATROPIUM BROMIDE NEB SOLN 0.02% 2.5 ML VIAL INH SCH ×4 (02:16→19:05)
[2016-09-07] MEDS: METHYLPREDNISOLONE IV 40 MG in SYRINGE 0 ML IV SCH ×3 (03:54→17:01)
[2016-09-07] MEDS: HEPARIN SOD 5000 UNIT/0.5 ML CARP SQ SCH ×3 (05:39→21:08)
[2016-09-07 06:33] LABS: HEMATOCRIT 38.7 % (42-52); MEAN CORPUSCULAR HEMOGLOBIN 29.2 pg (25-34); MEAN CORPUSCULAR HGB CONC 32.8 g/dl (32-36); MEAN PLATELET VOLUME 10.2 fL (7.4-10.4); PLATELET COUNT 111 K/uL (130-400); RED BLOOD COUNT 4.35 M/uL (4.7-6.1); WHITE BLOOD COUNT 6.49 K/uL (4.8-10.8)
[2016-09-07 07:16] LABS: BUN/CREATININE RATIO 16.2 (10-20); CALCIUM 8.3 mg/dl (8.5-10.1); CREATININE 0.92 mg/dl (0.60-1.40); POTASSIUM 3.8 mmol/L (3.5-5.1)
[2016-09-07] MEDS: CHOLECALCIFEROL 1000 INTER.UNIT TAB PO SCH (08:27)
[2016-09-07] MEDS: TOCOPHERYL, DL-ALPHA 400 INTER.UNIT CAP PO SCH (08:27)
[2016-09-07] MEDS: OMEGA-3 (PURIFIED FISH OIL) 1 GM CAP PO SCH (08:27)
[2016-09-07] MEDS: FUROSEMIDE 20 MG TAB PO SCH (08:28)
[2016-09-07] MEDS: LOVASTATIN 20 MG TAB PO SCH (08:28)
[2016-09-07] MEDS: CARVEDILOL 12.5 MG TAB PO SCH ×2 (08:28→21:06)
[2016-09-07] MEDS: ASPIRIN 81 MG ECTAB PO SCH (08:28)
[2016-09-07] MEDS: LISINOPRIL 20 MG TAB PO SCH (08:28)
[2016-09-07] MEDS: CLOPIDOGREL BISULFATE 75 MG TAB PO SCH (08:28)
[2016-09-07] MEDS: MAGNESIUM OXIDE 400 MG TAB PO SCH (08:28)
[2016-09-07] MEDS: INSULIN ASPART 100 UNITS/ML 3 ML PEN SC SCH ×4 (08:32→21:07)
[2016-09-07] MEDS: INSULIN GLARGINE SOLOSTAR 100 UNITS/ML 3 ML PEN SC SCH ×2 (08:33→21:08)
[2016-09-07] MEDS ORDERED: INSULIN GLARGINE SOLOSTAR 100 UNITS/ML 3 ML PEN SC SCH (09:00)
--- NOTE | 2016-09-07 11:38 | Progress Note ---
Medicine Progress Note Date & Time of Visit: Sep 07, 2016 at 11:35. Subjective patient seen resting in bed states he feels improved compared to yesterday breathing improving, able to expectorate more no chest pain no other symptoms Objective Last 8 Hrs Date Time Temp Pulse Resp B/P (MAP) Pulse Ox O2 Delivery O2 Flow Rate FiO2 09/07/16 08:10 Room Air 09/07/16 07:48 36.8 77 22 149/72 (97) 92 Room Air 09/07/16 06:58 67 16 93 Room Air 09/07/16 04:00 90 Room Air 09/07/16 03:42 36.7 78 20 158/76 (103) 95 Room Air Physical Exam: General- oriented x 3, not in distress, speaks in sentences with some effort, no acc muscle use Eyes- anicteric Neck- supple, no JVD Lungs- clear breath sounds bilaterally no rales/wheezes Heart- regular rhythm; no murmur, normal rate Abdomen- normal bowel sounds, soft, nontender Extremities- no pretibial edema, no calf tenderness; peripheral pulses intact Neuro- alert, oriented x 3; no gross focal deficits Skin- warm & dry Laboratory Results: Last 24 Hours Test 09/06/16 14:33 09/06/16 16:33 09/06/16 20:26 09/07/16 01:55 Total Creatine Kinase 462 U/L Creatine Kinase MB 8.3 ng/ml Creatine Kinase MB Ratio 1.8 Troponin I 0.024 ng/ml Bedside Glucose 178 mg/dl 281 mg/dl 245 mg/dl Test 09/07/16 06:07 09/07/16 06:33 09/07/16 11:16 White Blood Count 6.49 K/uL Red Blood Count 4.35 M/uL Hemoglobin 12.7 g/dL Hematocrit 38.7 % Mean Corpuscular Volume 89.0 fL Mean Corpuscular Hemoglobin 29.2 pg Mean Corpuscular Hemoglobin Concent 32.8 g/dl RDW Standard Deviation 41.2 fL RDW Coefficient of Variation 12.7 % Platelet Count 111 K/uL Mean Platelet Volume 10.2 fL Sodium Level 143 mmol/L Potassium Level 3.8 mmol/L Chloride Level 105 mmol/L Carbon Dioxide Level 27 mmol/L Anion Gap 11.0 mmol/L Blood Urea Nitrogen 15 mg/dl Creatinine 0.92 mg/dl Est Creatinine Clear Calc Drug Dose 80.4 ml/min Estimated GFR () 93.3 Estimated GFR (Non- 80.5 BUN/Creatinine Ratio 16.2 Random Glucose 254 mg/dl Calcium Level 8.3 mg/dl Bedside Glucose 236 mg/dl 276 mg/dl Assessment & Plan SOB /HYPOXIA LIKELY FROM RIGHT LOWER LOBE PNEUMONIA POSSIBLE UNDERLYING COPD, HISTORY OF SMOKING - CT chest: noted sputum cultures: pending blood cultures: negative so far - improving - started Solumedrol q8h--> taper to q12h Nebs q6h Ceftri + Azithro Day 3 - Speech Tx eval to r/o component of aspiration PNA soft diet for now advised small frequent meals CHF, Chronic Diastolic - euvolemic ECHO: -- Conclusions -- * Ejection Fraction = 55-60%. * There is mild concentric left ventricular hypertrophy. * The left ventricular wall motion is normal. * Grade I diastolic dysfunction, (abnormal relaxation pattern). * Mild aortic regurgitation. * Mildly dilated ascending aorta. -- cont Lasix , Lisinopril TYPE 2 DM : - ISS consult Pharmacy appreciate the input HTN - continue Lisinopril and Carvedilol PRIOR HX OF TIA : - No neurological deficit noted on Aspirin , Plavix , statin ASCENDING AORTIC ANEURSYM seen on CT chest Mild dilatation of the ascending aorta is noted, measuring 4 cm at the level the main pulmonary artery. There is no thoracic aortic dissection. monitor FULL CODE DVT PROPHYLAXIS : sub heparin DISPOSITION : Discharge home when medically stable possible d/c tomorrow Current Inpatient Medications: Current Inpatient Medications Medications (Trade) Dose Ordered Sig/Vee Route Start Time Stop Time Status Last Admin Dose Admin Ceftriaxone Sodium 1 gm/ Dextrose 50 ml @ 100 mls/hr Q24H IV 09/06/16 21:00 09/13/16 20:59 09/06/16 20:12 100 MLS/HR Azithromycin 500 mg/Dextrose 255 ml @ 170 mls/hr Q24H IV 09/06/16 22:00 09/13/16 21:59 09/06/16 20:55 170 MLS/HR Heparin Sodium (Porcine) (Heparin Sq 5000 Unit/0.5ml) 5,000 unit Q8 SQ 09/06/16 06:00 10/06/16 05:59 09/07/16 05:39 5,000 UNIT Acetaminophen (Tylenol Tab) 650 mg Q4H PRN PO 09/06/16 00:30 10/06/16 00:29 Al Hydrox/Mg Hydrox/Simethicone (Maalox Max Susp) 15 ml Q4H PRN PO 09/06/16 00:30 10/06/16 00:29 Magnesium Hydroxide (Milk Of Magnesia Susp) 30 ml Q12H PRN PO 09/06/16 00:30 10/06/16 00:29 Zolpidem Tartrate (Ambien Tab) 5 mg HSZ PRN PO 09/06/16 00:30 10/06/16 00:29 Ondansetron HCl (Zofran Inj) 4 mg Q6H PRN IV 09/06/16 00:30 10/06/16 00:29 Nitroglycerin (Nitrostat Tab) 0.4 mg UD PRN SL 09/06/16 00:30 10/06/16 00:29 Aspirin (Ecotrin Tab) 81 mg QAM PO 09/06/16 09:00 10/06/16 08:59 09/07/16 08:28 81 MG Polyethylene (Miralax Powder Packet) 17 gm DAILY PRN PO 09/06/16 00:30 10/06/16 00:29 Ioversol (Optiray 320) 125 ml UD PRN IV 09/06/16 00:30 09/10/16 00:29 Carvedilol (Coreg Tab) 12.5 mg BID PO 09/06/16 09:00 10/06/16 08:59 09/07/16 08:28 12.5 MG Cholecalciferol (Vitamin D Tab) 1,000 inter.unit DAILY PO 09/06/16 09:00 10/06/16 08:59 09/07/16 08:27 1,000 INTER.UNIT Clopidogrel Bisulfate (plAVix TAB) 75 mg DAILY PO 09/06/16 09:00 10/06/16 08:59 09/07/16 08:28 75 MG Furosemide (Lasix Tab) 20 mg DAILY PO 09/06/16 09:00 10/06/16 08:59 09/07/16 08:28 20 MG Lisinopril (Zestril Tab) 20 mg DAILY PO 09/06/16 09:00 10/06/16 08:59 09/07/16 08:28 20 MG Lovastatin (Mevacor Tab) 20 mg DAILY PO 09/06/16 09:00 10/06/16 08:59 09/07/16 08:28 20 MG mn-Szgsc-Ypotwqecfk Acetate (Vitamin E Cap) 400 interunit DAILY PO 09/06/16 09:00 10/06/16 08:59 09/07/16 08:27 400 INTERUNIT Magnesium Oxide (Mag-Ox Tab) 400 mg DAILY PO 09/06/16 09:00 10/06/16 08:59 09/07/16 08:28 400 MG Fish Oil ([place]-3 (Purified Fish Oil) Cap) 2 gm DAILY PO 09/06/16 09:00 10/06/16 08:59 09/07/16 08:27 2 GM Insulin Aspart (novoLOG ASPART) SLIDING SCALE If C... ACHS SC 09/06/16 07:00 10/06/16 06:59 09/07/16 08:32 12 UNITS Glucose (Glucose 40% Gel) 15-30 GRAMS 15 GRAMS... UD PRN PO 09/06/16 01:45 10/06/16 01:44 Glucose (Glucose Chew Tab) 4-8 Tablets 4 Tabl... UD PRN PO 09/06/16 01:45 10/06/16 01:44 Dextrose (Dextrose 50% 50ML Syringe) 25-50ML OF 50% DW IV FOR... UD PRN IV 09/06/16 01:45 10/06/16 01:44 Glucagon (Glucagon Inj) 1 mg UD PRN SQ 09/06/16 01:45 10/06/16 01:44 Albuterol/ Ipratropium (Duoneb) 3 ml Q4R PRN INH 09/06/16 03:45 10/06/16 03:44 Miscellaneous Information (Consult Glycemic Management Pharmacy) 1 ea UD PRN N/A 09/06/16 12:34 10/06/16 12:33 Ipratropium [place] (Atrovent 0.02% 0.5MG/2.5ML Neb) 0.5 mg Q6R INH 09/06/16 12:41 10/06/16 12:40 09/07/16 06:58 0.5 MG Levalbuterol (Xopenex 1.25MG/ 0.5ML Neb) 1.25 mg Q6R INH 09/06/16 12:41 10/06/16 12:40 09/07/16 06:58 1.25 MG Insulin Glargine (Lantus Solostar Pen) 17 unit BID SC 09/07/16 09:00 10/07/16 08:59 09/07/16 08:33 17 UNIT Insulin Aspart (novoLOG ASPART) SLIDING SCALE If C... TODAY@0200 ONCE SC 09/08/16 02:00 09/08/16 02:01 Methylprednisolone Sodium Succinate 40 mg/Syringe 0.64 ml @ 1.5 mls/min Q12H IV 09/07/16 16:00 10/06/16 19:59 UNV
[2016-09-07] MEDS ORDERED: PANTOprazole SOD 40 MG TAB PO ONE (11:45)
[2016-09-07] MEDS ORDERED: INSULIN REGULAR 5 UNITS in SYRINGE 0 ML IV ONE (12:45)
--- NOTE | 2016-09-07 12:51 | Pharmacy Progress Note ---
Glycemic Control: Progress Nt Date of Service Sep 07, 2016. Scope Glycemic Pharmacist consulted by Dr Okeefe on 09/06/16 for glycemic control and to write orders per [facility] inpatient glycemic control protocol. Objective Accuchecks BSG (last 24hrs): Test 09/06/16 16:33 09/06/16 20:26 09/07/16 01:55 09/07/16 06:07 Bedside Glucose 178 mg/dl (70-99) 281 mg/dl (70-99) 245 mg/dl (70-99) Random Glucose 254 mg/dl (70-99) Test 09/07/16 06:33 09/07/16 11:16 Bedside Glucose 236 mg/dl (70-99) 276 mg/dl (70-99) Laboratory Data (last 24hrs) Test 09/07/16 06:07 Anion Gap 11.0 mmol/L BUN/Creatinine Ratio 16.2 Blood Urea Nitrogen 15 mg/dl Creatinine 0.92 mg/dl Potassium Level 3.8 mmol/L Sodium Level 143 mmol/L White Blood Count 6.49 K/uL HbA1c: Test 09/06/16 06:22 Hemoglobin A1c 7.0 % (4.5-5.6) H Recent Pertinent Medications Outpatient Anti-diabetic Regimen: * Amaryl 4mg daily * Metformin 1gm PO daily * A1c = 7 % 09/06/16 The patient is currently receiving: * Basal insulin: Lantus 12 units every 12 hours * Correctional Insulin: Novolog SQ ACHS Correction Factor: 25mg/dL/unit Goal Range: 110 - 140mg/dL * Prandial insulin: Per carb ratio of 1 unit per 7 grams CHO consumed * Oral Agents: None currently Risk Factors for Insulin Resistance: * Steroids: Solu-medrol 40mg IV Q 8 hours * Infection: PNX vs COPD exac; receiving Rocephin + Zithromax IV * Diet: ordered Clear Liq diet and tolerating well Assessment & Plan ASSESSMENT: 09/06/16 * Type 2 diabetic, managed w/ Amaryl + Metformin prior to admission with what appears to be good results based upon recent A1c 7% * Fasting BSG elevated this AM, FBS 193 - he will likely require basal insulin in order to achieve glycemic targets, more so now that the patient is starting high dose IV steroids * Will begin Novolog correctional insulin and also adjust the carb ratio dose to provide more insulin w/ each meal as steroids often lead to exaggerated post- prandial hyperglycemic response. * Initial insulin doses will be based upon weight and anticipated moderate stress. There will be room to go up on the dose if we see hyperglycemia worsen over the course of the day. Will add a 0200 BSG check as a precaution as some patients are difficult to control w/ SQ regimens. 09/07/16 * Glycemic control began to deteriorate late in the day yesterday, likely due to accumulation of Solu-Medrol with ATC dosing combined with 4 servings of CHO' s throughout the day yesterday. * BSGs peaked at 281 last evening and are down to 230-240's range this AM despite receiving 59 units of insulin over the last 24 hrs * Current BSG pattern suggests both basal and prandial insulin deficiency. PLAN FOR INPATIENT GLYCEMIC CONTROL: * Increasing Lantus to 17 units SQ BID * Changing correction factor to 15 mg/dl/unit * Changing carb ratio to 1 unit per 5 grams CHO consumed * Continue goal range Low 110 mg/dL - High 140 mg/dL * Continue BSG check at 0200 and cover w/ Novolog parameters * Reassess insulin dose with each step down in steroid dose * Please note that the plan above was derived based on current level of insulin resistance and hospital stress. These recommendations are appropriate for inpatient admission only. Plan of care upon discharge will need to be reassessed to avoid potential outpatient hypo/hyperglycemia. Thank you.
[2016-09-07] MEDS ORDERED: SODIUM CHLORIDE 0.65% NA SOLN 45 ML (OCEAN) ONE (19:37)
[2016-09-07] MEDS ORDERED: NURSING DECISION MEDICATION ORDER SCH (19:45)
[2016-09-07] MEDS ORDERED: SODIUM CHLORIDE 0.65% NA SOLN 45 ML (OCEAN) PRN (20:00)
[2016-09-07] MEDS ORDERED: AZITHROMYCIN 250 MG TAB PO SCH (21:00)
[2016-09-07] MEDS: CEFTRIAXONE SOD INJ 1 GM in DEXTROSE 5% ADD-VANTAGE 50ML 50 ML IV SCH (21:06)
[2016-09-08] VITALS (7 sets, daily range): BP systolic 162–189; BP diastolic 80–88; PULSE 59–78; TEMP 36.6–37.1; O2SAT 91–98
[2016-09-08] MEDS ORDERED: INSULIN ASPART 100 UNITS/ML 3 ML PEN SC ONE (02:00)
[2016-09-08] MEDS: LEVALBUTEROL 1.25MG/0.5ML NEB INH SCH ×2 (02:26→06:55)
[2016-09-08] MEDS: IPRATROPIUM BROMIDE NEB SOLN 0.02% 2.5 ML VIAL INH SCH ×2 (02:26→06:55)
[2016-09-08] MEDS: METHYLPREDNISOLONE IV 40 MG in SYRINGE 0 ML IV SCH (04:31)
[2016-09-08] MEDS: HEPARIN SOD 5000 UNIT/0.5 ML CARP SQ SCH (05:44)
[2016-09-08 07:37] LABS: BUN/CREATININE RATIO 18.3 (10-20); CALCIUM 8.2 mg/dl (8.5-10.1); CREATININE 0.92 mg/dl (0.60-1.40); POTASSIUM 3.8 mmol/L (3.5-5.1)
[2016-09-08] MEDS: LISINOPRIL 20 MG TAB PO SCH (08:24)
[2016-09-08] MEDS: CLOPIDOGREL BISULFATE 75 MG TAB PO SCH (08:24)
[2016-09-08] MEDS: FUROSEMIDE 20 MG TAB PO SCH (08:24)
[2016-09-08] MEDS: LOVASTATIN 20 MG TAB PO SCH (08:24)
[2016-09-08] MEDS: CARVEDILOL 12.5 MG TAB PO SCH (08:24)
[2016-09-08] MEDS: ASPIRIN 81 MG ECTAB PO SCH (08:24)
[2016-09-08] MEDS: CHOLECALCIFEROL 1000 INTER.UNIT TAB PO SCH (08:25)
[2016-09-08] MEDS: TOCOPHERYL, DL-ALPHA 400 INTER.UNIT CAP PO SCH (08:25)
[2016-09-08] MEDS: OMEGA-3 (PURIFIED FISH OIL) 1 GM CAP PO SCH (08:25)
[2016-09-08] MEDS: MAGNESIUM OXIDE 400 MG TAB PO SCH (08:25)
[2016-09-08] MEDS: INSULIN ASPART 100 UNITS/ML 3 ML PEN SC SCH ×2 (08:27→12:54)
[2016-09-08] MEDS: INSULIN GLARGINE SOLOSTAR 100 UNITS/ML 3 ML PEN SC SCH (08:28)
[2016-09-08] MEDS ORDERED: INSULIN GLARGINE SOLOSTAR 100 UNITS/ML 3 ML PEN SC SCH ×3 (09:00→21:00)
[2016-09-08] MEDS ORDERED: PANTOprazole SOD 40 MG TAB PO SCH (09:00)
--- NOTE | 2016-09-08 10:31 | Pharmacy Progress Note ---
Glycemic Control: Progress Nt Date of Service Sep 08, 2016. Scope Glycemic Pharmacist consulted for glycemic control and to write orders per [facility] inpatient glycemic control protocol. Objective Accuchecks BSG (last 24hrs): Test 09/07/16 11:16 09/07/16 16:19 09/07/16 20:14 09/08/16 02:01 Bedside Glucose 276 mg/dl (70-99) 150 mg/dl (70-99) 225 mg/dl (70-99) 287 mg/dl (70-99) Test 09/08/16 06:41 Random Glucose 173 mg/dl (70-99) Laboratory Data (last 24hrs) HbA1c: Test 09/06/16 06:22 Hemoglobin A1c 7.0 % (4.5-5.6) H Recent Pertinent Medications Outpatient Anti-diabetic Regimen: * Amaryl 4mg PO daily * Metformin 1000mg PO daily The patient is currently receiving: * Basal insulin: Lantus 17 units every 12 hours * Correctional Insulin: Novolog Correction per scale ACHS Goal Range: Low 110 mg/dL - High 140 mg/dL Correction Factor: 15 mg/dL/unit * Prandial insulin: Per carb ratio of 1 unit per 5 grams CHO consumed Risk Factors for Insulin Resistance: * Steroids * Infection * Diet Assessment & Plan ASSESSMENT: * Patient is currently receiving ~90 units of insulin per day * 34 units of basal insulin {as Lantus 17 units BID} * 56 units of prandial/correctional insulin * BSGs ranging 150 - 276mg/dl over the past 24hrs * Anticipating insulin regimen will need empirically decreased d/t risk factors for insulin resistance decreasing * Steroid dosing tapering --> changed from Solumedrol 40mg IV Q8hrs to Q12hrs * Infection is being adequately treated/Pt status improving * Diet is advancing * Pt is only maintained on oral agents as an outpatient with adequate control. Insulin regimen will need tapered for discharge. PLAN FOR INPATIENT GLYCEMIC CONTROL: Decrease SQ basal bolus insulin regimen based on estimated total daily dose of 70 units {this is a 20% dose reduction from the last 24hrs} * Oral agents: * Continue to hold. Will resume metformin 1-2 days prior to d/c once PO intake and renal function adequate. * Basal insulin: decrease dosing * Lantus to 15 units SQ BID * Bolus insulin: loosen parameters * NovoLog per scale ACHS or Q6hrs while NPO * Goal Range: Low 110 mg/dL - High 140 mg/dL * Correction Factor: 20 mg/dL/unit * Nutritional / Prandial insulin per carb ratio of 1 unit per 7 grams CHO consumed * Please note that the plan above was derived based on current level of insulin resistance and hospital stress. These recommendations are appropriate for inpatient admission only. Plan of care upon discharge will need to be reassessed to avoid potential outpatient hypo/hyperglycemia. Thank you.
--- NOTE | 2016-09-08 12:09 | Progress Note ---
Medicine Progress Note Date & Time of Visit: Sep 08, 2016 at 12:00. Subjective patient seen resting in bedside chair states he feels much better overall denies cough, dyspnea no chest pain, palpitations, dizziness ambulating with no problems, oxygen level stays > 90% no other symptoms states he is ready and would like to be discharged today Objective Last 8 Hrs Date Time Temp Pulse Resp B/P (MAP) Pulse Ox O2 Delivery O2 Flow Rate FiO2 09/08/16 08:00 Room Air 09/08/16 07:54 36.6 59 19 189/81 (117) 97 09/08/16 06:57 76 16 98 Room Air Physical Exam: General- oriented x 3, not in distress, speaks in sentences with some effort, no acc muscle use Eyes- anicteric Neck- no JVD Lungs- clear breath sounds bilaterally, good air entry, no rales/wheezes Heart- regular rhythm; no murmur, normal rate Abdomen- normal bowel sounds, soft, nontender Extremities- no pretibial edema, no calf tenderness Neuro- alert, oriented x 3; no gross focal deficits Skin- warm & dry Laboratory Results: Last 24 Hours Test 09/07/16 16:19 09/07/16 20:14 09/08/16 02:01 09/08/16 06:41 Bedside Glucose 150 mg/dl 225 mg/dl 287 mg/dl Sodium Level 142 mmol/L Potassium Level 3.8 mmol/L Chloride Level 105 mmol/L Carbon Dioxide Level 29 mmol/L Anion Gap 8.0 mmol/L Blood Urea Nitrogen 17 mg/dl Creatinine 0.92 mg/dl Est Creatinine Clear Calc Drug Dose 80.3 ml/min Estimated GFR () 93.3 Estimated GFR (Non- 80.5 BUN/Creatinine Ratio 18.3 Random Glucose 173 mg/dl Calcium Level 8.2 mg/dl Assessment & Plan DYSPNEA, HYPOXIA LIKELY FROM RIGHT LOWER LOBE PNEUMONIA POSSIBLE UNDERLYING COPD, HISTORY OF SMOKING - CT chest: noted sputum cultures: normal yue blood cultures: negative so far - given Solumedrol q8h--> tapered to q12h Xopenex/Atrovent q6h Ceftri + Azithro IV x 3 days - clinically improved significantly weaned off oxygen - discharge on: Prednisone taper starting at 40mg po daily Levaquin 500mg x 3 more days Advair 100/50 bid Combivent QID ff up with PCP in 1 week CHF, Chronic Diastolic - euvolemic Echo: -- Conclusions -- * Ejection Fraction = 55-60%. * There is mild concentric left ventricular hypertrophy. * The left ventricular wall motion is normal. * Grade I diastolic dysfunction, (abnormal relaxation pattern). * Mild aortic regurgitation. * Mildly dilated ascending aorta. -- continued usual Lasix , Lisinopril TYPE 2 DM - given Lantus 15 units BID - Insulin Sliding Scale - resume usual metformin, glimepiride, Insulin Novolin HYPERTENSION - continue Lisinopril and Carvedilol HISTORY OF TIA - No neurological deficit noted on Aspirin , Plavix , statin ASCENDING AORTIC ANEURSYM seen on CT chest Mild dilatation of the ascending aorta is noted, measuring 4 cm at the level the main pulmonary artery. There is no thoracic aortic dissection. monitor closely FULL CODE DVT PROPHYLAXIS : subcutaneous heparin given DISPOSITION : d/c home today ff up with PCP in 1 week case discussed with patient and his and they are agreeable and comfortable with plan of care Current Inpatient Medications: Current Inpatient Medications Medications (Trade) Dose Ordered Sig/Vee Route Start Time Stop Time Status Last Admin Dose Admin Ceftriaxone Sodium 1 gm/ Dextrose 50 ml @ 100 mls/hr Q24H IV 09/06/16 21:00 09/13/16 20:59 09/07/16 21:06 100 MLS/HR Heparin Sodium (Porcine) (Heparin Sq 5000 Unit/0.5ml) 5,000 unit Q8 SQ 09/06/16 06:00 10/06/16 05:59 09/08/16 05:44 5,000 UNIT Acetaminophen (Tylenol Tab) 650 mg Q4H PRN PO 09/06/16 00:30 10/06/16 00:29 Al Hydrox/Mg Hydrox/Simethicone (Maalox Max Susp) 15 ml Q4H PRN PO 09/06/16 00:30 10/06/16 00:29 Magnesium Hydroxide (Milk Of Magnesia Susp) 30 ml Q12H PRN PO 09/06/16 00:30 10/06/16 00:29 Zolpidem Tartrate (Ambien Tab) 5 mg HSZ PRN PO 09/06/16 00:30 10/06/16 00:29 Ondansetron HCl (Zofran Inj) 4 mg Q6H PRN IV 09/06/16 00:30 10/06/16 00:29 Nitroglycerin (Nitrostat Tab) 0.4 mg UD PRN SL 09/06/16 00:30 10/06/16 00:29 Aspirin (Ecotrin Tab) 81 mg QAM PO 09/06/16 09:00 10/06/16 08:59 09/08/16 08:24 81 MG Polyethylene (Miralax Powder Packet) 17 gm DAILY PRN PO 09/06/16 00:30 10/06/16 00:29 Ioversol (Optiray 320) 125 ml UD PRN IV 09/06/16 00:30 09/10/16 00:29 Carvedilol (Coreg Tab) 12.5 mg BID PO 09/06/16 09:00 10/06/16 08:59 09/08/16 08:24 12.5 MG Cholecalciferol (Vitamin D Tab) 1,000 inter.unit DAILY PO 09/06/16 09:00 10/06/16 08:59 09/08/16 08:25 1,000 INTER.UNIT Clopidogrel Bisulfate (plAVix TAB) 75 mg DAILY PO 09/06/16 09:00 10/06/16 08:59 09/08/16 08:24 75 MG Furosemide (Lasix Tab) 20 mg DAILY PO 09/06/16 09:00 10/06/16 08:59 09/08/16 08:24 20 MG Lisinopril (Zestril Tab) 20 mg DAILY PO 09/06/16 09:00 10/06/16 08:59 09/08/16 08:24 20 MG Lovastatin (Mevacor Tab) 20 mg DAILY PO 09/06/16 09:00 10/06/16 08:59 09/08/16 08:24 20 MG fx-Ftrgf-Qvrabkrwvr Acetate (Vitamin E Cap) 400 interunit DAILY PO 09/06/16 09:00 10/06/16 08:59 09/08/16 08:25 400 INTERUNIT Magnesium Oxide (Mag-Ox Tab) 400 mg DAILY PO 09/06/16 09:00 10/06/16 08:59 09/08/16 08:25 400 MG Fish Oil ([place]-3 (Purified Fish Oil) Cap) 2 gm DAILY PO 09/06/16 09:00 10/06/16 08:59 09/08/16 08:25 2 GM Insulin Aspart (novoLOG ASPART) SLIDING SCALE If C... ACHS SC 09/06/16 07:00 10/06/16 06:59 09/08/16 08:27 15 UNITS Glucose (Glucose 40% Gel) 15-30 GRAMS 15 GRAMS... UD PRN PO 09/06/16 01:45 10/06/16 01:44 Glucose (Glucose Chew Tab) 4-8 Tablets 4 Tabl... UD PRN PO 09/06/16 01:45 10/06/16 01:44 Dextrose (Dextrose 50% 50ML Syringe) 25-50ML OF 50% DW IV FOR... UD PRN IV 09/06/16 01:45 10/06/16 01:44 Glucagon (Glucagon Inj) 1 mg UD PRN SQ 09/06/16 01:45 10/06/16 01:44 Albuterol/ Ipratropium (Duoneb) 3 ml Q4R PRN INH 09/06/16 03:45 10/06/16 03:44 Miscellaneous Information (Consult Glycemic Management Pharmacy) 1 ea UD PRN N/A 09/06/16 12:34 10/06/16 12:33 Ipratropium [place] (Atrovent 0.02% 0.5MG/2.5ML Neb) 0.5 mg Q6R INH 09/06/16 12:41 10/06/16 12:40 09/08/16 06:55 0.5 MG Levalbuterol (Xopenex 1.25MG/ 0.5ML Neb) 1.25 mg Q6R INH 09/06/16 12:41 10/06/16 12:40 09/08/16 06:55 1.25 MG Methylprednisolone Sodium Succinate 40 mg/Syringe 0.64 ml @ 1.5 mls/min Q12H IV 09/07/16 16:00 10/06/16 19:59 09/08/16 04:31 1.5 MLS/MIN Pantoprazole Sodium (Protonix Tab) 40 mg QAM PO 09/08/16 09:00 10/08/16 08:59 09/08/16 08:25 40 MG Azithromycin (Zithromax Tab) 500 mg PM PO 09/07/16 21:00 09/11/16 21:01 09/07/16 21:06 500 MG Sodium Chloride ([place] Nasal [place]) 1 sprays PRN PRN NA 09/07/16 20:00 10/07/16 19:59 09/08/16 04:31 1 SPRAYS Insulin Glargine (Lantus Solostar Pen) 15 unit BID SC 09/08/16 21:00 10/08/16 20:59
[2016-09-08] MEDS ORDERED: PRED10TA PO (12:20)
[2016-09-08] MEDS ORDERED: ADVIN10/60 INH (12:20)
[2016-09-08] MEDS ORDERED: IPRA1AER2 INH (12:20)
[2016-09-08] MEDS ORDERED: LVQ500 PO (12:20)
--- NOTE | 2016-09-08 12:25 | Discharge Instructions ---
Discharge Instructions Date of Service Sep 08, 2016. Admission Reason for Admission: Hypoxia Discharge Discharge Diagnosis / Problem: Pneumonia, COPD Exacerbation Discharge Goals Goal(s): Diagnostic testing, Therapeutic intervention Activity Recommendations Activity Limitations: as noted below (no heavy exertion until re-evaluated by Primary Care Physician) Lifting Limitations: until after follow-up appointment Exercise/Sports Limitations: until after follow-up appointment Driving or Machine Use: No driving until re-evaluated by Primary Care Physician . Instructions / Follow-Up Instructions / Follow-Up PLEASE REVIEW YOUR NEW MEDICATIONS LIST AND FOLLOW INSTRUCTIONS CAREFULLY. CALL YOUR PRIMARY CARE PHYSICIAN OR RETURN TO ER IMMEDIATELY IF WITH RECURRENCE OF SYMPTOMS, INCREASING COUGH, SHORTNESS OF BREATH, FEVER/CHILLS. IF YOUR BLOOD SUGAR LEVEL IS MORE THAN 200, PLEASE CALL YOUR PHYSICIAN IMMEDIATELY. FOLLOW UP WITH YOUR PRIMARY CARE PHYSICIAN IN 1 WEEK. Current Hospital Diet Patient's current hospital diet: Diabetes Type 2 Diet, AHA Diet (Heart Healthy) Discharge Diet Recommended Diet: AHA Diet (Heart Healthy), Diabetes Type 2 Diet Pending Studies Studies pending at discharge: no Laboratory Results Hemoglobin A1c Test 09/06/16 06:22 Range/Units Estimated Average Glucose 154 mg/dl Hemoglobin A1c 7.0 H 4.5-5.6 % Lipid Panel Test 09/06/16 06:22 Range/Units Triglycerides Level 142 0-150 mg/dl Cholesterol Level 121 0-200 mg/dl HDL Cholesterol 32 mg/dl Cholesterol/HDL Ratio 3.8 LDL Cholesterol, Calculated 61 mg/dl Medical Emergencies . Who to Call and When: Medical Emergencies: If at any time you feel your situation is an emergency, please call 911 immediately. . Non-Emergent Contact Non-Emergency issues call your: Primary Care Provider Call Non-Emergent contact if: you have a fever, you have any medication questions . Past History Medical & Surgical History: (1) SOB (shortness of breath) (2) Hypoxia (3) Diabetes mellitus (4) CHF (congestive heart failure) . "Provider Documentation" section prepared by Piotr Okeefe. . VTE Core Measure Inpt VTE Proph given/why not?: Unfractionated heparin SQ
[2016-09-08] MEDS ORDERED: LEVOFLOXACIN 500 MG TAB PO ONE (12:30)
--- NOTE | 2016-09-08 12:36 | Discharge Summary ---
Discharge Summary Date of Service Sep 08, 2016. Discharge Summary Admission Date: Sep 06, 2016 at 00:23 Discharge Date: Sep 08, 2016 Discharge Disposition: Home Principal Diagnosis: DYSPNEA, HYPOXIA; LIKELY FROM RIGHT LOWER LOBE PNEUMONIA POSSIBLE UNDERLYING COPD, HISTORY OF SMOKING Secondary Diagnoses/Problems: Please refer to hospital course below. Procedures: CT ANGIOGRAPHY OF THE CHEST, PULMONARY EMBOLUS PROTOCOL CLINICAL HISTORY: Shortness of breath and elevated d-dimer. COMPARISON STUDY: Chest radiograph September 05, 2016. TECHNIQUE: Following IV administration of 108 mL of Optiray-320, helical axial images of the chest were obtained utilizing the pulmonary embolus protocol. Maximal intensity projections and sagittal and coronal reformats were viewed on an independent 3D workstation. IV contrast was administered without complication. CT DOSE: 632.52 mGy.cm FINDINGS: No pulmonary emboli are identified although this exam is compromised by respiratory motion which compromises evaluation of the segmental and subsegmental pulmonary arteries. The heart is mildly enlarged. There is no pericardial effusion. Mild dilatation of the ascending aorta is noted, measuring 4 cm at the level the main pulmonary artery. There is no thoracic aortic dissection. Lungs are suboptimally assessed due to respiratory motion. Subpleural opacities favor atelectasis. A mild infectious process would be difficult to exclude within the medial basilar segment of the right lower lobe. Central airways are patent. There is no pneumothorax or pleural effusion. Bony thorax is unremarkable. There is suspected fatty infiltration of the liver. IMPRESSION: 1. No pulmonary emboli identified although the segmental and subsegmental pulmonary arteries are suboptimally assessed due to respiratory motion. 2. Moderate cardiomegaly and mild dilatation of the ascending aorta. No thoracic aortic dissection. 3. A few scattered airspace opacities. Atelectasis is favored although a mild infectious process could appear similar. 2 D ECHO Interpretation Summary * Name: LUIS MAYA Study Date: 09/06/2016 09:56 AM BP: 144/65 mmHg * Patient Location: [facility] HR: 100 * : 1940 (M/d/yyyy) Gender: Male Height: 68 in * Age: 76 yrs Ethnicity: CA Weight: 250 lb * Ordering Physician: Maria E Black * Performed By: Latricia Roberts * * Reason For Study: CHEST PAIN * BSA: 2.2 m2 * The study was technically adequate. * There is no comparison study available. * -- Conclusions -- * Ejection Fraction = 55-60%. * There is mild concentric left ventricular hypertrophy. * The left ventricular wall motion is normal. * Grade I diastolic dysfunction, (abnormal relaxation pattern). * Mild aortic regurgitation. * Mildly dilated ascending aorta. Procedure Details * A complete two-dimensional transthoracic echocardiogram was performed (2D, M- mode, Doppler and color flow Doppler). * The study was technically difficult. * There were technical limitations due to patient'sbody habitus * A contrast injection of Definity was performed to improve assessment of LV function. * Contrast was injected into an intravenous site in the left arm. * One vial of Definity ultrasound contrast was diluted in normal saline to a total volume of 10 ml. A total of '2' ml of solution was administered during imaging. * Lot # [id number] of Definity utilized for procedure. * Expiration date 09/14. * The attending nurse who injected the contrast agent was MALCOLM DODSON RN. Left Ventricle * The left ventricle is normal in size. * There is no thrombus. * There is mild concentric left ventricular hypertrophy. * Ejection Fraction = 55-60%. * Left ventricular systolic function is normal. * The left ventricular wall motion is normal. Right Ventricle * The right ventricle is normal size. * The right ventricular systolic function is normal as assessed by tricuspid annular plane systolic excursion (TAPSE) (normal >1.5 cm). Atria * The left atrial size is normal. * Right atrial size is normal. * There is no evidence of atrial septal defect, but resolution does not allow assessment for a patent foramen ovale. Mitral Valve * The mitral valve is normal. * There is no mitral valve stenosis. * Significant mitral regurgitation is absent. Tricuspid Valve * The tricuspid valve is not well visualized. * There is no tricuspid stenosis. * Significant tricuspid regurgitation is absent. Aortic Valve * The aortic valve is not well visualized. * Aortic stenosis is absent. * Mild aortic regurgitation. Pulmonic Valve * The pulmonary valve is not well seen, but the Doppler examination is normal without significant regurgitation or stenosis. Great Vessels * The aortic root is normal size. * Mildly dilated ascending aorta. Pericardium/Pleural * There is no pericardial effusion. Great Vessels * Normal inferior vena cava diameter and respiratory variation suggests normal central venous pressure. Left Ventricular Diastolic Function * Grade I diastolic dysfunction, (abnormal relaxation pattern). Pending Studies/Follow-Up: Follow up Ascending Aorta dilatation (full CT chest report noted above); Please refer to hospital course below for further details. If you have any questions, please call Dr. Piotr Okeefe MD- Hospitalist at . Thanks. Medication Reconciliation New Medications: Fluticasone Prop/Salmeterol (Advair Diskus 100/50 60 Dose) 1 Ea Aerp 1 PUFFS INH BID for 10 Days, #1 INHALER 1 Refill Ipratropium-Albuterol (Combivent Respimat) 1 Aer Aer 1 PUFFS INH QID for 7 Days, #1 INH 1 Refill may also use every 4 hours as needed for shortness of breath/wheezing Prednisone Tab (Prednisone) 10 Mg Tab 10 MG PO UD, #15 TAB take 4 tabs po daily x 2 days, then take 2 tabs po daily x 2 days, then take 1 tab po daily x 2 days, then take 1/2 tab po daily x 2 days, then STOP Levofloxacin (Levofloxacin) 500 Mg Tab 500 MG PO DAILY@11 for 3 Days, #3 TAB 0 Refills Continued Medications: Carvedilol (Coreg) 12.5 Mg Tab 12.5 MG PO BID, TAB Cholecalciferol (Vitamin D3) 1,000 Unit Tab 1 TAB PO DAILY, TAB Cinnamon (Cinnamon) 500 Mg Cap 2 CAP PO DAILY Clopidogrel (Plavix) 75 Mg Tab 75 MG PO DAILY, TAB Coconut Oil (Bulk) (Coconut Oil) 1 Oil Oil 1000 MG PO DAILY Coenzyme Q10 (Ubidecarenone) (Co Q-10) 75 Mg Cap 1 CAP PO DAILY, CAP Furosemide (Lasix) 20 Mg Tab 20 MG PO DAILY, TAB Glimepiride (Glimepiride) 4 Mg Tab 1 TAB PO DAILY, TAB Lisinopril (Prinivil) 20 Mg Tab 20 MG PO DAILY, TAB Lovastatin (Mevacor) 20 Mg Tab 20 MG PO DAILY, TAB Magnesium Oxide (Mg Supplement (Magnesium) 500 Mg Tab 1 TAB PO DAILY Metformin Hcl (Glucophage) 1,000 Mg Tab 1000 MG PO DAILY, TAB Misc Natural Products (Ginkgo Biloba) 1 Tab Tab 1 TAB PO DAILY Newbern-3 Fatty Acids (Fish Oil) 1 Cap Cap 2 CAP PO DAILY Saw Lynn (Serenoa Repens) (Saw Lynn) 450 Mg Cap 1 CAP PO DAILY Turmeric (Curcuma Longa) (Turmeric) 500 Mg Tab 1 TAB PO DAILY Vitamin E (Vitamin E 400 Iu) 400 Unit Cap 400 INTER.UNIT PO DAILY, CAP Zinc Gluconate (Zinc) 50 Mg Tab 1 TAB PO DAILY Admission Information HPI (per Admitting provider): This is 76 yo Male visiting [facility] , presented with SOB , orthopnea , cough with productive sputum , chills for past 2 days Pt's past medical hx includes -hx of TIA ( multiple times ) , HTN , CHF ( dx approx 2 yrs back ) , DM type 2 pt mentions he came to [place] with his to visit family , has been staying in a [facility] 2 nights before pt woke up with SOB , cough , unable to lay flat had ongoing cough through the day tool Zyrtec -for possible allergy symptom -developed chills and rigor no record of fever in the ED pt was found hypoxic spo2 in 80's in RA improved after 2 L 02 ( pt is not on home 02 ) Cxry shows no active pulmonary disease , no pulmonary congestion , Pro BNP wnl CTA of chest negative for PE bibasilar atelectasis pt given dose of IV Levaquin in ER will be admitted to telemetry for further care Physical Exam (per Admitting): General Appearance: no apparent distress Head: normocephalic, atraumatic Eyes: sclerae normal Respiratory/Chest: chest non-tender, + decreased breath sounds, + pertinent finding (no wheeze or rales noted ) Cardiovascular: regular rate, rhythm, no edema, no JVD Abdomen/GI: non tender, soft Extremities/Musculoskelatal: normal inspection, no calf tenderness, normal capillary refill, no pedal edema Neurologic/Psych: alert, normal mood/affect, oriented x 3 Hospital Course DYSPNEA, HYPOXIA; LIKELY FROM RIGHT LOWER LOBE PNEUMONIA POSSIBLE UNDERLYING COPD, HISTORY OF SMOKING - CT chest: noted sputum cultures: normal yue blood cultures: negative so far - given Solumedrol q8h--> tapered to q12h Xopenex/Atrovent q6h Ceftri + Azithro IV x 3 days - clinically improved significantly weaned off oxygen - discharge on: Prednisone taper starting at 40mg po daily Levaquin 500mg x 3 more days Advair 100/50 bid Combivent QID ff up with PCP in 1 week CHF, Chronic Diastolic - euvolemic Echo: -- Conclusions -- * Ejection Fraction = 55-60%. * There is mild concentric left ventricular hypertrophy. * The left ventricular wall motion is normal. * Grade I diastolic dysfunction, (abnormal relaxation pattern). * Mild aortic regurgitation. * Mildly dilated ascending aorta. -- continued usual Lasix , Lisinopril TYPE 2 DM - given Lantus 15 units BID and Insulin Sliding Scale - resume usual metformin, glimepiride, Insulin Novolin HYPERTENSION - continue Lisinopril and Carvedilol HISTORY OF TIA - No neurological deficit noted on Aspirin , Plavix , statin ASCENDING AORTIC ANEURSYM seen on CT chest: (full report on procedure section above) Mild dilatation of the ascending aorta is noted, measuring 4 cm at the level the main pulmonary artery. There is no thoracic aortic dissection. no chest pain monitor closely DVT PROPHYLAXIS : subcutaneous heparin given DISPOSITION : d/c home ff up with PCP in 1 week case discussed with patient and his and they are agreeable and comfortable with plan of care Total time spent on discharge = 45 minutes This includes examination of the patient, discharge planning, medication reconciliation, and communication with other providers. Discharge Instructions Discharge Instructions Date of Service Sep 08, 2016. Admission Reason for Admission: Hypoxia Discharge Discharge Diagnosis / Problem: Pneumonia, COPD Exacerbation Discharge Goals Goal(s): Diagnostic testing, Therapeutic intervention Activity Recommendations Activity Limitations: as noted below (no heavy exertion until re-evaluated by Primary Care Physician) Lifting Limitations: until after follow-up appointment Exercise/Sports Limitations: until after follow-up appointment Driving or Machine Use: No driving until re-evaluated by Primary Care Physician . Instructions / Follow-Up Instructions / Follow-Up PLEASE REVIEW YOUR NEW MEDICATIONS LIST AND FOLLOW INSTRUCTIONS CAREFULLY. CALL YOUR PRIMARY CARE PHYSICIAN OR RETURN TO ER IMMEDIATELY IF WITH RECURRENCE OF SYMPTOMS, INCREASING COUGH, SHORTNESS OF BREATH, FEVER/CHILLS. IF YOUR BLOOD SUGAR LEVEL IS MORE THAN 200, PLEASE CALL YOUR PHYSICIAN IMMEDIATELY. FOLLOW UP WITH YOUR PRIMARY CARE PHYSICIAN IN 1 WEEK. Current Hospital Diet Patient's current hospital diet: Diabetes Type 2 Diet, AHA Diet (Heart Healthy) Discharge Diet Recommended Diet: AHA Diet (Heart Healthy), Diabetes Type 2 Diet Pending Studies Studies pending at discharge: no Laboratory Results Hemoglobin A1c Test 09/06/16 06:22 Range/Units Estimated Average Glucose 154 mg/dl Hemoglobin A1c 7.0 H 4.5-5.6 % Lipid Panel Test 09/06/16 06:22 Range/Units Triglycerides Level 142 0-150 mg/dl Cholesterol Level 121 0-200 mg/dl HDL Cholesterol 32 mg/dl Cholesterol/HDL Ratio 3.8 LDL Cholesterol, Calculated 61 mg/dl Medical Emergencies . Who to Call and When: Medical Emergencies: If at any time you feel your situation is an emergency, please call 911 immediately. . Non-Emergent Contact Non-Emergency issues call your: Primary Care Provider Call Non-Emergent contact if: you have a fever, you have any medication questions . Past History Medical & Surgical History: (1) SOB (shortness of breath) (2) Hypoxia (3) Diabetes mellitus (4) CHF (congestive heart failure) . "Provider Documentation" section prepared by Piotr Okeefe. . VTE Core Measure Inpt VTE Proph given/why not?: Unfractionated heparin SQ
[2016-09-09] MEDS ORDERED: LEVOFLOXACIN 500 MG TAB PO SCH (11:00)
== END 2016-09-08 13:15 | disposition home or self-care (01) | DRG 190 ==
LOC: C.EDB 21:39 → C.2T 09-06 00:23 → ENRESERV 09-06 00:34
PROVIDERS: ADMIT Hospitalist; ATTEND Internal Medicine
DX: J44.1 Chronic obstructive pulmonary disease with (acute) exacerbation (principal); J18.9 Pneumonia, unspecified organism; I50.23 Acute on chronic systolic (congestive) heart failure; J44.0 Chronic obstructive pulmonary disease with (acute) lower respiratory infection; R09.02 Hypoxemia; I11.0 Hypertensive heart disease with heart failure; E11.9 Type 2 diabetes mellitus without complications; I71.4 Abdominal aortic aneurysm, without rupture; Z86.73 Personal history of transient ischemic attack (TIA), and cerebral infarction without residual deficits; Z87.891 Personal history of nicotine dependence; Z79.899 Other long term (current) drug therapy; Z79.02 Long term (current) use of antithrombotics/antiplatelets; Z79.84 Long term (current) use of oral hypoglycemic drugs